=== PATIENT | male | born 1950 | race Caucasian/White ===

== ENCOUNTER 2016-10-08 18:16 | Inpatient (IN) ==
--- NOTE | 2016-10-08 19:42 | Emergency Department Note ---
Disposition Clinical Impression: Deep vein thrombosis of lower extremity Disposition: Admitted As Inpatient Condition: Fair General Adult HPI - General Chief complaint: ED Extremity Problem,Nontraumatic Stated complaint: Needs Ultrasound on ankle Time Seen by Provider: 10/08/16 19:39 Source: patient, family Limitations: no limitations - History of Present Illness Pain Scale: 2 - Related Data Home Medications Medication Instructions Recorded Confirmed Azathioprine [Imuran] 50 mg PO DAILY 08/13/15 10/08/16 Lansoprazole [Prevacid] 30 mg PO BID 08/13/15 10/08/16 predniSONE [PredniSONE] 10 mg PO DAILY 08/13/15 10/08/16 Doxycycline Hyclate 100 mg PO BID 11/24/15 10/08/16 Fludrocortisone Acetate [Florinef] 0.1 mg PO MOWEFR 11/24/15 10/08/16 Alfuzosin HCl [Uroxatral] 10 mg PO DAILY 05/29/16 10/08/16 Oxycodone HCl [Oxycodone HCl] 10 mg PO Q8H PRN 10/08/16 10/08/16 clonazePAM [Klonopin] 1 mg PO HS 10/08/16 10/08/16 Doxycycline 100 mg PO BID 10/09/16 10/09/16 Allergies Allergy/AdvReac Type Severity Reaction Status Date / Time NSAIDS (Non-Steroidal AdvReac KIDNEY Verified 10/08/16 18:39 Anti-Inflamma DISEASE Past Medical History - Past Medical History Medical history: Reports: arthritis, cancer, GERD, hepatitis, renal disease, other Surgical history: Reports: hip replacement, orthopedic, other, other Psychiatric history: Reports: no psych history - Social History Smoking Status: Never smoker Smokeless Tobacco Status: No Alcohol use: Reports: none Drug use: Reports: none Physical Exam - General Limitations: no limitations General appearance: alert, in no apparent distress Course Vital Signs Temperature 97.9 F 10/08/16 18:35 Pulse Rate 70 10/08/16 18:35 Respiratory Rate 18 10/08/16 18:35 Blood Pressure 105/58 10/08/16 18:35 O2 Sat by Pulse Oximetry 91 10/08/16 18:35 Temperature 97.5 F L 10/09/16 05:04 Pulse Rate 81 10/09/16 05:04 Respiratory Rate 18 10/09/16 05:04 Blood Pressure 133/77 10/09/16 05:04 O2 Sat by Pulse Oximetry 95 10/09/16 05:04 Oxygen Delivery Oxygen Delivery Room Air Medical Decision Making - Lab Data Result diagrams: 10/08/16 21:23 10/08/16 21:23 Lab Results 10/08/16 10/08/16 10/08/16 Range/Units 21:23 21:23 21:23 WBC 4.2 L (4.3-11.1) K/mcL RBC 2.91 L (4.19-5.50) M/mcL Hgb 9.9 L (12.9-16.9) g/dL Hct 31.1 L (37.5-50.1) % MCV 106.9 H (83.0-100.0) fL MCH 34.0 H (28.0-33.3) pg MCHC 31.8 (31.6-35.5) g/dL RDW 13.8 (11.5-14.5) % Plt Count 77 L (140-400) K/mcL MPV 11.2 (9.4-12.4) fL Immature Gran % 1.2 (0-4) % Seg Neutrophils % 88.0 % Lymphocytes % 4.0 % Monocytes % 6.6 % Eosinophils % 0.2 % Basophils % 0.0 % Neutrophils # 3.7 (1.6-8.9) K/mcL Lymphocytes # 0.2 L (0.6-4.6) K/mcL Monocytes # 0.3 (0.0-1.3) K/mcL Eosinophils # 0.0 (0.0-0.6) K/mcL Basophils # 0.0 (0.0-0.2) K/mcL Platelet Estimate Decreased L (Normal) Immature Plt Fraction 3.2 (1.1-6.1) % PT 11.3 (9.4-12.1) Seconds INR 1.0 APTT 28.3 (26.0-36.0) Seconds Sodium 140 (136-145) mEq/L Potassium 4.9 H (3.5-4.5) mEq/L Chloride 111 H (98-109) mEq/L Carbon Dioxide 19 (19-29) mEq/L BUN 79 H (8-26) mg/dL Creatinine 5.08 H (0.72-1.25) mg/dL Est GFR ( Amer) 14 L (> 60) Est GFR (Non-Af Amer) 12 L (> 60) BUN/Creatinine Ratio 16 (6-26) Glucose 131 H (70-99) mg/dL Calculated Osmolality 315 H (280-300) Calcium 10.2 (8.6-10.8) mg/dL Total Bilirubin 0.5 (0.2-1.2) mg/dL AST 19 (5-34) Units/L ALT 9 (0-55) Units/L Alkaline Phosphatase 124 (38-126) Units/L Serum Total Protein 5.7 L (6.0-8.3) g/dL Albumin 2.9 L (3.5-5.0) g/dL Globulin 2.8 (2.4-3.5) g/dL Albumin/Globulin Ratio 1.0 L (1.1-2.2) Critical Care Time Critical Care Time: Yes Total Critical Care Time: 30 Attestation: She presented with left lower extremity pain and swelling. Diagnosed with a DVT. IV heparin started per my discussion with the admitting hospitalist Attestation Statement - Attestation Attestation: I examined this patient and my medical decision-making was reviewed with the CHEMISTRY ASSOCIATE/PA/Advanced Practice Nurse/Resident Physician. I agree with the documented findings, disposition and treatment plan as described except to the extent set forth below. [id number] time provided The patient is concerned about atraumatic left ankle swelling. No history of DVT. No evidence of septic arthritis on exam. I suspect the swelling to be secondary to his gait as he has a leg length discrepancy and has a left under his right shoe. DVT study +. Admit due to baseline kidney dysfunction 21:20: Case discussed with Dr. Baker covering for Dr. John (nephro) who is made aware of the patient's admission
--- NOTE | 2016-10-08 20:27 | Emergency Department Note ---
Disposition Clinical Impression: Deep vein thrombosis of lower extremity Qualifiers: Affected thrombotic vein of extremity: iliac Laterality: left Chronicity: acute Qualified Code(s): I82.422 - Acute embolism and thrombosis of left iliac vein Disposition: Admitted As Inpatient Condition: Fair Referrals: NO,PCP [Non-Partnered Physician] - Forms: ED Satisfaction Letter Time of Disposition: 22:10 Extremity Problem HPI - General Chief complaint: ED Extremity Problem,Nontraumatic Stated complaint: Needs Ultrasound on ankle Time Seen by Provider: 10/08/16 19:39 Source: patient, family Limitations: no limitations Nursing Notes Reviewed: Yes Vital Signs Reviewed: Yes - History of Present Illness HPI Narrative: Patient is a 65-year-old male who presents to [facility] ED with a chief complaint of left lower extremity swelling. States he was seen in the office today by Dr. Gilmore who was concerned for a DVT. Patient states the swelling has been ongoing over the last 6 weeks. Patient denies any shortness of breath or chest pain. He has had some issues with nausea and decreased appetite which is why he is seeing a retail wireless sales consultant. Denies any recent fevers or chills. Patient has had prior hip surgery as well as has a foot lift on his right foot. Pt Subjective Complaint: extremity swelling Onset (ago): week(s) Consistency: constant Injury Location: left, lower extremity Pain Scale: 7 Radiation: none Improves with: nothing Worsens with: walking Associated symptoms: Reports: change in appearance, swelling. Denies: chest pain, shortness of breath, fever - Related Data Home Medications Medication Instructions Recorded Confirmed Azathioprine [Imuran] 50 mg PO DAILY 08/13/15 07/20/16 Lansoprazole [Prevacid] 30 mg PO QAM 08/13/15 07/20/16 predniSONE [PredniSONE] 10 mg PO HS 08/13/15 07/20/16 Doxycycline Hyclate 100 mg PO BID 11/24/15 07/20/16 Fludrocortisone Acetate [Florinef] 0.1 mg PO 3XW MDD mon,wed,fri 11/24/15 Alfuzosin HCl [Uroxatral] 10 mg PO DAILY 05/29/16 07/20/16 Oxycodone HCl [Oxycodone HCl] 10 mg PO Q8H PRN 06/19/17 06/19/17 clonazePAM [Klonopin] 1 mg PO HS 10/08/16 10/08/16 Allergies Allergy/AdvReac Type Severity Reaction Status Date / Time NSAIDS (Non-Steroidal AdvReac KIDNEY Verified 10/08/16 18:39 Anti-Inflamma DISEASE All systems ED: reviewed and negative except as stated. Past Medical History - Past Medical History Attestation: Yes The following information was validated with the patient. Source: patient Medical history: Reports: arthritis, cancer, GERD, hepatitis, renal disease, other Surgical history: Reports: hip replacement, orthopedic, other, other Psychiatric history: Reports: no psych history - Social History Smoking Status: Never smoker Smokeless Tobacco Status: No Alcohol use: Reports: none Drug use: Reports: none Physical Exam - General Limitations: no limitations General appearance: alert, in no apparent distress - Head Head exam: atraumatic, normocephalic, normal inspection - Eye Eye exam: Present: normal appearance, EOMI - ENT ENT exam: normal exam, normal oropharynx, mucous membranes moist - Chest Chest inspection: Present: normal inspection, symmetric chest wall rise - Cardiovascular Cardiovascular exam: Present: regular rate, normal rhythm, normal heart sounds - Abdominal Exam Abdominal exam: Present: soft, Non-Tender. Absent: tenderness, distention, guarding, rebound, rigidity - Extremities Exam Extremities exam: Present: pedal edema - Expanded Lower Extremity Exam Lower leg exam: Present: swelling Ankle exam: Present: swelling Foot/toe exam: Present: swelling Neurovascular/Tendon exam: Present: normal capillary refill - Back Exam Back exam: Present: normal inspection, full ROM. Absent: tenderness - Neurological Exam Neurological exam: Present: alert - Psychiatric Psychiatric exam: Present: normal affect, normal mood - Skin Skin exam: Present: warm, dry, intact, normal color Course Course Narrative: Patient seen and examined. Left lower extremity swelling worse over the last 6 weeks. Sent in for rule out DVT. No signs of cellulitis. Patient has minimal pain. Venous Doppler ultrasound ordered. - Reevaluation(s) Reevaluation #1: Patient's Doppler of the left lower external doppler positive for large DVT extending from the iliac all the way down. Due to patient's poor renal function , Dr. Walker spoke with Dr. Baker to let them know that patient was coming into the hospital. Also spoke to Dr. Estrada who has accepted patient for admission. He would like a heparin drip started. This has been ordered. Time: 22:09 Vital Signs Temperature 97.9 F 10/08/16 18:35 Pulse Rate 70 10/08/16 18:35 Respiratory Rate 18 10/08/16 18:35 Blood Pressure 105/58 10/08/16 18:35 O2 Sat by Pulse Oximetry 91 10/08/16 18:35 Temperature 97.9 F 10/08/16 18:35 Pulse Rate 106 10/08/16 20:09 Respiratory Rate 18 10/08/16 20:09 Blood Pressure 124/81 10/08/16 20:09 O2 Sat by Pulse Oximetry 100 10/08/16 20:09 Oxygen Delivery Oxygen Delivery Room Air Extremity Problem, Nontraumati - Medical Records Medical records reviewed: Yes I reviewed the patient's medical records. - Lab Data Lab results reviewed: Yes I reviewed the patient's lab results. Result diagrams: 10/08/16 21:23 10/08/16 21:23 Lab Results 10/08/16 10/08/16 10/08/16 Range/Units 21:23 21:23 21:23 WBC 4.2 L (4.3-11.1) K/mcL RBC 2.91 L (4.19-5.50) M/mcL Hgb 9.9 L (12.9-16.9) g/dL Hct 31.1 L (37.5-50.1) % MCV 106.9 H (83.0-100.0) fL MCH 34.0 H (28.0-33.3) pg MCHC 31.8 (31.6-35.5) g/dL RDW 13.8 (11.5-14.5) % Plt Count 77 L (140-400) K/mcL MPV 11.2 (9.4-12.4) fL Immature Gran % 1.2 (0-4) % Seg Neutrophils % 88.0 % Lymphocytes % 4.0 % Monocytes % 6.6 % Eosinophils % 0.2 % Basophils % 0.0 % Neutrophils # 3.7 (1.6-8.9) K/mcL Lymphocytes # 0.2 L (0.6-4.6) K/mcL Monocytes # 0.3 (0.0-1.3) K/mcL Eosinophils # 0.0 (0.0-0.6) K/mcL Basophils # 0.0 (0.0-0.2) K/mcL Platelet Estimate Decreased L (Normal) Immature Plt Fraction 3.2 (1.1-6.1) % PT 11.3 (9.4-12.1) Seconds INR 1.0 APTT 28.3 (26.0-36.0) Seconds Sodium 140 (136-145) mEq/L Potassium 4.9 H (3.5-4.5) mEq/L Chloride 111 H (98-109) mEq/L Carbon Dioxide 19 (19-29) mEq/L BUN 79 H (8-26) mg/dL Creatinine 5.08 H (0.72-1.25) mg/dL Est GFR ( Amer) 14 L (> 60) Est GFR (Non-Af Amer) 12 L (> 60) BUN/Creatinine Ratio 16 (6-26) Glucose 131 H (70-99) mg/dL Calculated Osmolality 315 H (280-300) Calcium 10.2 (8.6-10.8) mg/dL Total Bilirubin 0.5 (0.2-1.2) mg/dL AST 19 (5-34) Units/L ALT 9 (0-55) Units/L Alkaline Phosphatase 124 (38-126) Units/L Serum Total Protein 5.7 L (6.0-8.3) g/dL Albumin 2.9 L (3.5-5.0) g/dL Globulin 2.8 (2.4-3.5) g/dL Albumin/Globulin Ratio 1.0 L (1.1-2.2) - Radiology Data Radiology results reviewed: Yes I reviewed the patient's radiology results.
[2016-10-08 21:31] LABS: Eosinophils % 0.2 %; Hematocrit 31.1 % (37.5-50.1)
[2016-10-08 21:33] LABS: Hemoglobin 9.9 g/dL (12.9-16.9); Immature Granulocytes % 1.2 % (0-4); Immature Platelets 3.2 % (1.1-6.1); Lymphocytes # 0.2 K/mcL (0.6-4.6); Mean Corpuscular HGB Conc 31.8 g/dL (31.6-35.5); Mean Corpuscular Volume 106.9 fL (83.0-100.0); Mean Platelet Volume 11.2 fL (9.4-12.4); Monocytes # 0.3 K/mcL (0.0-1.3); Monocytes % 6.6 %; Neutrophils # 3.7 K/mcL (1.6-8.9); Red Blood Count 2.91 M/mcL (4.19-5.50); Red Cell Distribution Width 13.8 % (11.5-14.5)
[2016-10-08 21:35] LABS: Platelet Count 77 K/mcL (140-400)
[2016-10-08 21:39] LABS: Prothrombin Time 11.3 Seconds (9.4-12.1)
[2016-10-08 21:41] LABS: Activated Partial Thrombo Time 28.3 Seconds (26.0-36.0)
[2016-10-08 21:44] LABS: Albumin 2.9 g/dL (3.5-5.0); Bilirubin,Total 0.5 mg/dL (0.2-1.2); Calcium 10.2 mg/dL (8.6-10.8); Globulin 2.8 g/dL (2.4-3.5); Potassium 4.9 mEq/L (3.5-4.5); Total Protein 5.7 g/dL (6.0-8.3)
[2016-10-08] MEDS ORDERED: *HR* Heparin 5,000 UNIT/ML VIAL IVP PRN ×2 (21:55)
[2016-10-08] MEDS ORDERED: *HR* Heparin 5,000 UNIT/ML VIAL IVP ONE (21:55)
[2016-10-08 22:01] LABS: Platelet Estimate Decreased (Normal)
[2016-10-08] MEDS: Heparin 25,000 UNIT/500 ML D5W 25,000 UNIT/500 ML MLS IVC SCH (22:10)
[2016-10-09] MEDS: clonazePAM 1 MG TABLET PO SCH ×2 (00:50→20:47)
[2016-10-09] MEDS: *HR* OxyCODONE Immed Rel 5 MG TABLET PO PRN ×2 (00:51→17:31)
[2016-10-09] MEDS: Doxycycline 100 MG CAPSULE PO SCH ×3 (01:13→20:47)
[2016-10-09] MEDS ORDERED: Naloxone 0.4 MG/ML INJ IVP PRN (02:13)
--- NOTE | 2016-10-09 02:13 | Internal Med History&Physical ---
Date of Encounter: 10/09/16 Time of Encounter: 02:12 Assessment and Plan (1) Deep vein thrombosis of lower extremity Current visit: Yes Status: Acute Pt apparently been sedentary since he lost his earlier this year. Venous Doppler was Positive for DVT in Iliac Vein,CFV and SFV. He is started on heparin drip in the ER. Pt has chronic thrombocytopenia - will consult Hematology / oncology for advice on anticoagulation. Qualifiers: Affected thrombotic vein of extremity: iliac Laterality: left Chronicity : acute Qualified Code(s): I82.422 - Acute embolism and thrombosis of left iliac vein (2) CKD (chronic kidney disease) stage 4, GFR 15-29 ml/min Current visit: Yes Status: Chronic Monitor renal function. Avoid nephrotoxics (3) Anemia Current visit: Yes Status: Chronic Chronic macrocytic anemia. Labs in August 2016 showed low folate and normal TSH and vitamin B12. will start on folic acid supplements. Monitor H&H Qualifiers: Anemia type: other cause Other causes of anemia: chronic disease, kidney Qualified Code(s): N18.9 - Chronic kidney disease, unspecified (4) Thrombocytopenia Current visit: Yes Status: Chronic Likely secondary to Hepatitis C. Monitor platelet count (5) Kidney transplant recipient Current visit: Yes Status: Chronic Continue home medications Internal Medicine - H&P: HPI Chief complaint: DVT Admitted From: Emergency Dept Plans for Post Hospital Care: Home History of present illness: Mr. Ford is a 65 year old male Past medical history significant for s/p kidney transplant, CKD, BPH, hepatitis C, anemia, Barretts esophagus, s/p Right total Hip replacement / revision, s/p left ankle surgery. He was apparently seen in Dr Shaffer office for dysphagia. He reported left ankle edema and Dr Gilmore was concerned about DVT, subsequent venous Doppler showed Positive DVT in Iliac Vein,CFV and SFV in left LE. He was started on heparin infusion in the emergency department. He is admitted to the hospitalist service for further workup and management. Pt denies significant pain in the left lower extremity. He reports that the swelling has been ongoing over the last 6 weeks. He denies significant chest pain, or change in shortness of breath (He has chronic shortness of breath). Denies hemoptysis, fever, chills, abdominal pain, dysuria, hematuria or bowel problems. He reports that he picks the skin, which bleeds and causing bruising of the skin. Past Med Surg Social Fam HX - Past Medical History Medical history: arthritis, cancer, GERD, hepatitis, renal disease Psychiatric history: no psych history - Past Surgical History Surgical History: hip replacement, orthopedic, other, other - Social History Smoking Status: Never smoker Smokeless Tobacco Status: No Alcohol use: none Drug use: none - Family History Father Living Status: Mother Living Status: Internal Medicine - H&P: Meds Azathioprine [Imuran] 50 mg PO DAILY 08/13/15 [History] Lansoprazole [Prevacid] 30 mg PO BID 08/13/15 [History] predniSONE [PredniSONE] 10 mg PO DAILY 08/13/15 [History] Doxycycline Hyclate 100 mg PO BID 11/24/15 [History] Fludrocortisone Acetate [Florinef] 0.1 mg PO MOWEFR 11/24/15 [History] Alfuzosin HCl [Uroxatral] 10 mg PO DAILY 05/29/16 [History] Oxycodone HCl [Oxycodone HCl] 10 mg PO Q8H PRN 10/08/16 [History] clonazePAM [Klonopin] 1 mg PO HS 10/08/16 [History] Doxycycline 100 mg PO BID 10/09/16 [History] Allergies NSAIDS (Non-Steroidal Anti-Inflamma Adverse Reaction (Verified 10/08/16 18:39) KIDNEY DISEASE All Systems PM: A 10-system review of systems was performed and is negative for pertinent findings except as documented above in the HPI. - Constitutional Vitals: Temp Pulse Resp BP Pulse Ox 97.6 F 104 18 117/85 100 10/08/16 23:53 10/08/16 23:53 10/08/16 23:53 10/08/16 23:53 10/09/16 01:42 Exam: General: Not in acute distress at the time of my evaluation HEENT: Oral mucosa is moist. No conjunctival palor or scleral icterus Neck: No obvious neck swellings Lungs: Clear to auscultation Cardiac: Regular rate and rhythm. No significant murmurs Abdomen: Soft, non tender. Bowel sounds present Genitourinary: No danielson catheter Neurological: Alert and oriented. No gross localizing deficits Psych: Not aggressive or agitated Extremities: Right lower extremity is shorted than the left. There is chronic swelling at the right hip. There is swelling of the left leg / ankle Skin: Bruising over the upper extremities Internal Med - H&P Results - Labs CBC & Chem 7: 10/08/16 21:23 10/08/16 21:23
[2016-10-09] MEDS ORDERED: Doxycycline 100 MG CAPSULE PO SCH (09:00)
[2016-10-09] MEDS: Renal Vitamin 1 MG CAPSULE PO SCH (09:13)
[2016-10-09] MEDS: NON-FORMULARY MEDICATION 1 EACH EACH PO SCH (09:13)
[2016-10-09] MEDS: predniSONE 10 MG TABLET PO SCH (09:13)
--- NOTE | 2016-10-09 10:22 | Internal Med Progress Note ---
<Donnie Sweeney - Last Filed: 10/09/16 16:31> Date of Encounter: 10/09/16 - Constitutional Vitals: Temp Pulse Resp BP Pulse Ox 97.9 F 82 18 138/78 94 10/09/16 15:30 10/09/16 15:30 10/09/16 15:30 10/09/16 15:30 10/09/16 15:30 Internal Medicine: Result - Labs CBC & Chem 7: 10/08/16 21:23 10/08/16 21:23 - ABG Interpretation ABG results: PT/INR, D-dimer PT 11.3 Seconds (9.4-12.1) 10/08/16 21:23 Consult Discharge Plan - Plan Referrals: Vijay Daniel MD [Primary Care Provider] - - Attending Attestation I examined this patient and my medical decision-making was reviewed with the SEWING MACHINE ADJUSTER/PA/Advanced Practice Nurse/Resident Physician. I agree with the documented findings, disposition and treatment plan as described except to the extent set forth below. Oncology input appreciated. will get nephrology on board. <Gilberto Albarado - Last Filed: 10/09/16 16:58> Date of Encounter: 10/09/16 Time of Encounter: 10:15 - Assessment and plan (1) Deep vein thrombosis of left lower limb Current Visit: Yes Status: Acute Assessment and plan: Extensive left lower extremity deep vein thrombosis identified with venous ultrasound. Patient denies traumatic injury. Patient has been sitting for long periods of time after the loss of his . He denies any shortness of breath, chest pain or any other concerning symptoms. Other than his skin lesions he denies any known history of cancer. - Patient denies any history of deep vein thrombosis or pulmonary embolism. - Previous left hip replacement and left septic hip and left ankle surgery 3 years ago - Patient is currently on heparin drip for antiplatelet therapy. Plan: - Patient will require at least 3 months of adequate anticoagulation but given hisstage V CKD his oral anticoagulation is limited. His current options include subcutaneous heparin injections at therapeutic level or oral Coumadin. - Hematology consulted Qualifiers: Qualified Code(s): I82.402 - Acute embolism and thrombosis of unspecified deep veins of left lower extremity (2) Macrocytic anemia Current Visit: Yes Status: Acute Assessment and plan: Patient has a chronic history of macrocytic anemia with previous history of renal transplant and in the setting of stage V kidney failure. He follows up with Dr. John with nephrology. He has previously been seen by hematology/ oncology for his macrocytic anemia. - Currently stable (3) Thrombocytopenia Current Visit: Yes Status: Chronic Assessment and plan: Chronic history of thrombocytopenia, review of previous platelet counts demonstrate a low of 28, currently 77 which is slightly normal than his baseline from 2016. - Hematology has been consulted. (4) Chronic kidney disease, stage V Current Visit: Yes Status: Acute Assessment and plan: Chronic kidney disease with a GFR of 12 and creatinine of 5.08. He follows up with Dr. John. - Current creatinine is stable. Plan: -Renally dose antibiotics and avoid nephrotoxic medications including NSAIDs. - Monitor renal function daily (5) Kidney transplant recipient Current Visit: Yes Status: Chronic Assessment and plan: Kidney transplant 1979, slow decrease in renal function. - Monitored by nephrology (6) DM (diabetes mellitus) Current Visit: No Status: Acute Assessment and plan: History of type 2 diabetes currently diet controlled. We will add low-dose sliding scale insulin during inpatient stay. - Monitor glucoses daily Qualifiers: Diabetes mellitus type: type 2 Diabetes mellitus complication status: with kidney complications Diabetes mellitus complication detail: with chronic kidney disease Chronic kidney disease stage: stage 4 (severe) Qualified Code (s): E11.22 - Type 2 diabetes mellitus with diabetic chronic kidney disease; N18.4 - Chronic kidney disease, stage 4 (severe); Z79.4 - superintendent container terminal (current) use of insulin (7) DVT prophylaxis Current Visit: Yes Status: Acute Assessment and plan: Patient currently on heparin drip with transition to warfarin with current DVT - Subjective Interval history: Mr. Ford very pleasant 65-year-old male has been seen and evaluated patient bedside this morning. He is without any pain, discomfort and is resting well and is alert and oriented 3. Upon discussion he states that his symptoms of left lower extremity swelling started roughly 6 weeks ago and that he has not had any traumas or known injuries or recent surgeries in the last several months. He last had a left hip surgery and left ankle surgery roughly 3 years ago. Though he does mention he has been sitting a lot more since his in May with low motivation. He denies any history of blood clots including DVTs and pulmonary embolisms. He does have a history of skin cancer since starting his immunosuppressants for his kidney transplants in 1978. He is unsure why he lost his kidney originally but thinks is due to his high blood pressure history. He follows up with Dr. John with nephrology with his worsening renal function and said that his GFR is roughly 12 for the past 2 years. Prior to his current admission he was seen Dr. Gilmore for evaluation prior to EGD for difficulty with swallowing and history of Ma's esophagus. Currently he is feeling well at his normal state of health and asked about discharge. - Constitutional Vitals: Temp Pulse Resp BP Pulse Ox 98.1 F 80 18 126/71 99 10/09/16 06:56 10/09/16 06:56 10/09/16 06:56 10/09/16 06:56 10/09/16 06:56 Exam: General: Patient alert, awake, oriented 3, interactive, in no acute distress HEENT: Normocephalic, atraumatic, pupils equal reactive to light, nasal cavity patent and open septum median position, oral mucosa moist, uvula midline, neck supple trachea midline no palpable lymphadenopathy, no thyromegaly. Chest: Symmetric bilateral correlating with respiratory effort, effort nonlabored. Cardiac: Regular rate and rhythm, positive S1, S2, no bruits appreciated bilateral carotids, Radial pulses 2+ bilateral, posterior tibial and dorsal pedal pulses 2+ bilateral. Respiratory: Clear to auscultation all lung saucedo Abdomen: Soft, nontender, positive bowel sounds, no palpable masses appreciated on examination Extremities: Left lower extremity demonstrates edema from the foot up to mid thigh. Patient is moving all 4 extremities spontaneously. No signs of erythema. Neurologic: No focal deficits appreciated on examination. Face symmetric, muscle strength symmetric bilateral upper and lower extremities. Internal Medicine: Result - Labs CBC & Chem 7: 10/08/16 21:23 10/08/16 21:23 - ABG Interpretation ABG results: PT/INR, D-dimer PT 11.3 Seconds (9.4-12.1) 10/08/16 21:23
--- NOTE | 2016-10-09 12:17 | Venous Imaging Report ---
LE Venous Duplex Patient Name:Gilberto Ford Order Number:[id number] Procedure Date:10/08/2016 Date:1950ge:65 yrs Gender:Male Location:[facility] ED Room #: ED2 Masseur/Masseuse:Mary Lou Mackenzie Referring MD:Lalito Walker MD renewals manager:Vijay Daniel MD Reading MD:Piyush Hyde MD Primary Indications:DVT evaluation Secondary Indications: Impressions: Acute deep venous thrombosis is present from the left distal iliac through superficial femoral vein. Acute superficial thrombosis is present in the left greater saphenous vein. Normal contralateral common femoral vein. Recommendations: Test completed on 10/08/2016 at 9:03:00 pm. Critical findings reported to Dr. Walker-ED- in person at 9:05:00 pm on 10/08/2016 by Mary Lou Mackenzie. Findings Venous Duplex Results: Left: There is an occlusive thrombus seen in the left distal iliac. There is an occlusive thrombus seen in the left common femoral. There is an occlusive thrombus seen in the left superficial femoral. There is an occlusive thrombus seen in the left great saphenous above knee. Prior Study: No prior study available for comparison. Lower Extremity Venous Duplex Side Vein Compress Spontaneous Flow Augment Diameter (cm) Depth (cm) Left Distal Iliac None no Absent no Left Common Femoral None no Absent no Left Superficial Femoral None no Absent no Left Popliteal Normal Yes Phasic Yes Left Posterior Tibial Normal Yes Phasic Yes Left Peroneal Normal Yes Phasic Yes Left Saphenofemoral Junction Normal Yes Phasic Yes Left Great Saphenous [place] None no Absent no Left Great Saphenous BK Normal Yes Phasic Yes Left Lesser Saphenous Normal Yes Phasic Yes Right Common Femoral Normal Yes Phasic Yes Updated by Piyush Hyde MD on 10/09/2016 12:12:05 PM electronically signed on 10/09/2016 12:12:20 PM with status of Final
--- NOTE | 2016-10-09 12:33 | Oncology Inp Consult Note ---
Date of Encounter: 10/09/16 Time of Encounter: 11:45 Assessment and Plan (1) Deep vein thrombosis of left lower limb Status: Acute Assessment and plan: Mr. Jonas has an acute left lower extremity deep vein thrombosis. He has been placed on heparin with a clinical response. Regarding long-term anticoagulation , his only valid option is Coumadin. I will start him on Coumadin 3 mg once daily given his body habitus and medical comorbidities. INR goal will be 2-3. Unfortunately ODACs are not an option given his GFR being less than 15. We will plan for a minimum of 3 months of therapy, but preferably 6 months. Please set him up in the outpatient Coumadin clinic to aid in management I will have him follow my clinic as well 2 weeks after discharge. Thank you for this consultation. Please call my cell [phone] for concerns or questions Qualifiers: Qualified Code(s): I82.402 - Acute embolism and thrombosis of unspecified deep veins of left lower extremity - Data of Consult Requesting Physician: Donnie Sweeney MD Primary Care Provider: Vijay Daniel MD - Consult Narrative Reason for consult: Let leg DVT in setting of thrombocytopenia History of present illness: Mr. Ford is a 65 year old male with multiple medical problems who presents with subacute worsening of left leg pain and ankle swelling. The past 6 weeks or so, he has had some leg pain and swelling which worse over the past 1 week. He brought this to the attention was orthopedists who thought it was arthritic in nature and offered a steroid injection. He was seen by another physician who recommended diuresis and a low sodium diet. He then met with his billboard erector who is helping him with a has hepatitis C recommended postoperative ultrasound which revealed a left leg deep vein thrombosis affecting his left iliac vein, common femoral vein, superficial femoral vein and left great saphenous vein. He was admitted to the hospital placed on a heparin drip. His left leg mobility, swelling and pain have improved. Patient has no personal history of thrombosis. He denies any known family history of thrombosis as well. He does have hepatitis C and recently completed a course of therapy that sounded consistent with Svetlana. This was initiated in April and completed the end of June. He does have end-stage renal disease. He is status post transplant remotely and his GFR calculates to 12 by labs drawn today. Past Med Surg Social Fam HX - Past Medical History Medical history: arthritis, cancer, GERD, hepatitis, renal disease Psychiatric history: no psych history - Past Surgical History Surgical History: hip replacement, orthopedic, other, other - Social History Smoking Status: Never smoker Smokeless Tobacco Status: No Alcohol use: none Drug use: none - Family History Father Living Status: Mother Living Status: Medications and Allergies Azathioprine [Imuran] 50 mg PO DAILY 08/13/15 [History] Lansoprazole [Prevacid] 30 mg PO BID 08/13/15 [History] predniSONE [PredniSONE] 10 mg PO DAILY 08/13/15 [History] Doxycycline Hyclate 100 mg PO BID 11/24/15 [History] Fludrocortisone Acetate [Florinef] 0.1 mg PO MOWEFR 11/24/15 [History] Alfuzosin HCl [Uroxatral] 10 mg PO DAILY 05/29/16 [History] Oxycodone HCl [Oxycodone HCl] 10 mg PO Q8H PRN 10/08/16 [History] clonazePAM [Klonopin] 1 mg PO HS 10/08/16 [History] Doxycycline 100 mg PO BID 10/09/16 [History] Allergies NSAIDS (Non-Steroidal Anti-Inflamma Adverse Reaction (Verified 10/08/16 18:39) KIDNEY DISEASE All systems: reviewed and no additional remarkable complaints except as stated Constitutional: Present: fatigue, lethargy, weight loss Musculoskeletal: Present: arthralgias, joint swelling Psychiatric: Present: depression Oncology - Exam - Constitutional Vitals: Temp Pulse Resp BP Pulse Ox 98.8 F 89 18 159/87 98 10/09/16 11:24 10/09/16 11:24 10/09/16 11:24 10/09/16 11:24 10/09/16 11:24 General appearance: no acute distress, thin - Head Head exam: Present: atraumatic, normal inspection, normocephalic - Eye Eye exam: Present: conjuntiva pink, sclera anicteric - ENT ENT exam: Present: mucous membranes moist - Neck Neck exam: Present: full ROM, normal inspection - Respiratory Respiratory exam: Present: CTAB - Cardiovascular Cardiovascular exam: Present: RRR - GI/Abdominal GI/Abdominal exam: Present: normal bowel sounds, soft - Extremities Exam Extremities exam: Present: joint swelling, pedal edema Oncology - Results - Labs Labs: Laboratory Results - last 24 hr 10/08/16 10/08/16 10/08/16 21:23 21:23 21:23 WBC 4.2 L RBC 2.91 L Hgb 9.9 L Hct 31.1 L MCV 106.9 H MCH 34.0 H MCHC 31.8 RDW 13.8 Plt Count 77 L MPV 11.2 Immature Gran % 1.2 Seg Neutrophils % 88.0 Lymphocytes % 4.0 Monocytes % 6.6 Eosinophils % 0.2 Basophils % 0.0 Neutrophils # 3.7 Lymphocytes # 0.2 L Monocytes # 0.3 Eosinophils # 0.0 Basophils # 0.0 Platelet Estimate Decreased L Immature Plt Fraction 3.2 PT 11.3 INR 1.0 APTT 28.3 Sodium 140 Potassium 4.9 H Chloride 111 H Carbon Dioxide 19 BUN 79 H Creatinine 5.08 H Est GFR ( Amer) 14 L Est GFR (Non-Af Amer) 12 L BUN/Creatinine Ratio 16 Glucose 131 H Calculated Osmolality 315 H Calcium 10.2 Total Bilirubin 0.5 AST 19 ALT 9 Alkaline Phosphatase 124 Serum Total Protein 5.7 L Albumin 2.9 L Globulin 2.8 Albumin/Globulin Ratio 1.0 L 10/09/16 03:39 WBC RBC Hgb Hct MCV MCH MCHC RDW Plt Count MPV Immature Gran % Seg Neutrophils % Lymphocytes % Monocytes % Eosinophils % Basophils % Neutrophils # Lymphocytes # Monocytes # Eosinophils # Basophils # Platelet Estimate Immature Plt Fraction PT INR APTT 93.6 H D Sodium Potassium Chloride Carbon Dioxide BUN Creatinine Est GFR ( Amer) Est GFR (Non-Af Amer) BUN/Creatinine Ratio Glucose Calculated Osmolality Calcium Total Bilirubin AST ALT Alkaline Phosphatase Serum Total Protein Albumin Globulin Albumin/Globulin Ratio Consult Discharge Plan - Plan Referrals: Vijay Daniel MD [Primary Care Provider] -
[2016-10-09] MEDS ORDERED: *HR* Dextrose 50 % in Water (Syg) 50 ML SYRINGE IVP PRN (16:54)
[2016-10-09] MEDS ORDERED: Dextrose Gel 15 GM PO PRN ×2 (16:54)
[2016-10-09] MEDS ORDERED: D5% in Water 1,000 ML IVC PRN (16:54)
[2016-10-09] MEDS: Insulin LISPRO 300 UNITS/3 ML VIAL SQ SCH ×2 (17:28→20:48)
[2016-10-09] MEDS ORDERED: *HR* Warfarin 3 MG TABLET PO SCH (18:00)
[2016-10-10] MEDS: *HR* OxyCODONE Immed Rel 5 MG TABLET PO PRN ×3 (02:24→22:26)
[2016-10-10] MEDS: Heparin 25,000 UNIT/500 ML D5W 25,000 UNIT/500 ML MLS IVC SCH ×2 (06:15→22:00)
--- NOTE | 2016-10-10 07:20 | Oncology Inp Progress Note ---
Date of Encounter: 10/10/16 Time of Encounter: 07:15 (1) Deep vein thrombosis of left lower limb Current Visit: Yes Status: Acute Assessment and plan: Mr. Jonas has an acute left lower extremity deep vein thrombosis. He has been placed on heparin with a clinical response. Coumading initiated 10/09. INR goal will be 2-3. INR ordered for tomorrow. Unfortunately ODACs are not an option given his GFR being less than 15. We will plan for a minimum of 3 months of therapy, but preferably [address] imaging of C/A/P without significant abnormality. No indication to pursue further cancer workup outside of age appropriate screening per recent publication. Please set him up in the outpatient Coumadin clinic to aid in management I will have him follow my clinic as well 2 weeks after discharge. Thank you for this consultation. Please call my cell [phone] for concerns or questions Qualifiers: Qualified Code(s): I82.402 - Acute embolism and thrombosis of unspecified deep veins of left lower extremity Oncology: Subj Interval history: No acute events overnight. Received coumadin 3 mg last night. Feels hungry and upset over lack of food options. Would like to eat more. Informed patient he will likely be here through early weekend. He was disappointed by this. Left leg swelling has improved, however. - Constitutional Vitals: Vital Signs Temp Pulse Resp BP Pulse Ox 10/10/16 02:49 98.2 F 77 19 132/67 100 10/09/16 23:40 100 10/09/16 23:01 98.2 F 81 18 138/85 100 10/09/16 19:27 98.5 F 77 16 118/69 100 10/09/16 15:30 97.9 F 82 18 138/78 94 10/09/16 14:51 89 18 159/87 98 Intake and Output 10/09/16 10/10/16 10/10/16 16:59 00:59 08:59 Intake Total 1740 / 1740 950 / 950 Output Total 200 / 200 250 / 250 Balance 1540 / 1540 700 / 700 Intake: IV Fluids 250 / 250 Heparin 25,000 UNIT/500 250 / 250 ML D5W 25,000 unit In 500 ml @ 14 UNIT/KG/HR 16. 003 mls/hr IVC .Q24H NABIL Rx#:[id number] Oral 1740 / 1740 700 / 700 Output: Urine 200 / 200 250 / 250 Other: Meal Dinner Percent of Meal Consumed 70% Weight 55.1 kg Blood Glucose* 134 Patient Weight 10/11/16 00:59 Weight 55.1 kg - Head Head exam: Present: atraumatic, normal inspection, normocephalic - Eye Eye exam: Present: conjuntiva pink, sclera anicteric - ENT ENT exam: Present: mucous membranes moist, normal oropharynx - Neck Neck exam: Present: full ROM, normal inspection - Respiratory Respiratory exam: Present: CTAB - Cardiovascular Cardiovascular exam: Present: RRR - GI/Abdominal GI/Abdominal exam: Present: normal bowel sounds, soft - Extremities Exam Extremities exam: Present: pedal edema, tenderness - Neurological Exam Neurological exam: Present: CN II-XII intact, oriented X3, no focal deficits Oncology: Obj Data - Labs CBC & Chem 7: 10/08/16 21:23 10/08/16 21:23 Labs: Laboratory Results - last 24 hr 10/09/16 19:35 POC Glucose 134 H - Impressions Impressions Abdomen/Pelvis CT 10/09/16 16:30 IMPRESSION: Stable noncontrast study of the abdomen and pelvis. D/ / Chayo Hahn Cha, MD / Chayo Hahn Cha, MD Interpreting Provider: Chayo Hahn Cha, MD Chest CT 10/09/16 16:30 IMPRESSION: No acute or suspicious intrathoracic process. D/ / Chayo Hahn Cha, MD / Chayo Hahn Cha, MD Interpreting Provider: Chayo Hahn Cha, MD - Imaging and cardiology Chest x-ray Additional comments: Abdomen/Pelvis CT 10/09/16 16:30 IMPRESSION: Stable noncontrast study of the abdomen and pelvis. D/ / Chayo Hahn Cha, MD / Chayo Hahn Cha, MD Interpreting Provider: Chayo Hahn Cha, MD Chest CT 10/09/16 16:30 IMPRESSION: No acute or suspicious intrathoracic process. D/ / Chayo Hahn Cha, MD / Chayo Hahn Cha, MD Interpreting Provider: Chayo Hahn Cha, MD - ABG Interpretation ABG results: PT/INR, D-dimer PT 11.3 Seconds (9.4-12.1) 10/08/16 21:23 Consult Discharge Plan - Plan Referrals: Vijay Daniel MD [Primary Care Provider] -
[2016-10-10 07:27] LABS: Basophils % 0.2 %; Eosinophils % 1.7 %; Immature Granulocytes % 1.3 % (0-4); Mean Corpuscular Volume 105.2 fL (83.0-100.0); Monocytes % 11.9 %; Red Cell Distribution Width 13.9 % (11.5-14.5)
[2016-10-10 07:29] LABS: Eosinophils # 0.1 K/mcL (0.0-0.6); Hematocrit 24.1 % (37.5-50.1); Hemoglobin 7.8 g/dL (12.9-16.9); Immature Platelets 4.5 % (1.1-6.1); Lymphocytes # 0.4 K/mcL (0.6-4.6); Mean Corpuscular HGB Conc 32.4 g/dL (31.6-35.5); Mean Corpuscular Hemoglobin 34.1 pg (28.0-33.3); Mean Platelet Volume 11.1 fL (9.4-12.4); Monocytes # 0.6 K/mcL (0.0-1.3); Red Blood Count 2.29 M/mcL (4.19-5.50); Segmented Neutrophils % 75.9 %
[2016-10-10 08:20] LABS: Neutrophils # 3.6 K/mcL (1.6-8.9); Platelet Count 75 K/mcL (140-400)
--- NOTE | 2016-10-10 08:24 | Internal Med Progress Note ---
<Gilberto Albarado - Last Filed: 10/10/16 13:15> Date of Encounter: 10/10/16 Time of Encounter: 08:24 - Assessment and plan (1) Deep vein thrombosis of left lower limb Current Visit: Yes Status: Acute Assessment and plan: Extensive left lower extremity deep vein thrombosis identified with venous ultrasound. Patient denies traumatic injury. Patient has been sitting for long periods of time after the loss of his . He denies any shortness of breath, chest pain or any other concerning symptoms. Other than his skin lesions he denies any known history of cancer. - Patient denies any history of deep vein thrombosis or pulmonary embolism. - Previous left hip replacement and left septic hip and left ankle surgery 3 years ago - Patient is currently on heparin drip for antiplatelet therapy. - Seen by oncology/hematology and started on warfarin therapy. Plan: - Continue heparin drip until Coumadin level is therapeutic with a goal range of 2-3 with expected treatments 3-6 months. Patient will require follow-up with anticoagulation clinic - Hematology involved in patient's care and recommendations appreciated. Qualifiers: Qualified Code(s): I82.402 - Acute embolism and thrombosis of unspecified deep veins of left lower extremity (2) Macrocytic anemia Current Visit: Yes Status: Acute Assessment and plan: Patient has a chronic history of macrocytic anemia with previous history of renal transplant and in the setting of stage V kidney failure. He follows up with Dr. John with nephrology. He has previously been seen by hematology/ oncology for his macrocytic anemia. 10/10/2016: Hemoglobin 7.8 this morning down from 9.9 yesterday. Patient was started on heparin drip for extensive DVT. He denies any blood in his urine or stool. - Continue to monitor hemoglobin rechecked this afternoon. - Replace with PRBCs if hemoglobin falls below 7.0 - If there is a source of acute bleeding patient may require IVC filter. (3) Thrombocytopenia Current Visit: Yes Status: Chronic Assessment and plan: Chronic history of thrombocytopenia, review of previous platelet counts demonstrate a low of 28, currently 75 which is slightly normal than his baseline from 2016. - Hematology has been consulted. (4) Chronic kidney disease, stage V Current Visit: Yes Status: Acute Assessment and plan: Chronic kidney disease stage V. He follows up with Dr. John. - Current creatinine is stable. Plan: -Renally dose antibiotics and avoid nephrotoxic medications including NSAIDs. - Monitor renal function daily - Nephrology currently involved in patient's care. (5) Kidney transplant recipient Current Visit: Yes Status: Chronic Assessment and plan: Kidney transplant 1978, slow decrease in renal function. - Monitored by nephrology (6) DM (diabetes mellitus) Current Visit: No Status: Acute Assessment and plan: History of type 2 diabetes currently diet controlled. We will add low-dose sliding scale insulin during inpatient stay. - Monitor glucoses daily Qualifiers: Diabetes mellitus type: type 2 Diabetes mellitus complication status: with kidney complications Diabetes mellitus complication detail: with chronic kidney disease Chronic kidney disease stage: stage 4 (severe) Qualified Code (s): E11.22 - Type 2 diabetes mellitus with diabetic chronic kidney disease; N18.4 - Chronic kidney disease, stage 4 (severe); Z79.4 - termite technician (current) use of insulin (7) DVT prophylaxis Current Visit: Yes Status: Acute Assessment and plan: Patient currently on heparin drip with transition to warfarin with current DVT - Subjective Interval history: Mr. Ford very pleasant 65-year-old male has been seen and evaluated patient bedside this morning. He is without discomfort and is resting well and is alert and oriented 3. He does complain of some left lower extremity tightness and weakness with his swelling. He said that this has been consistent for the last 6 weeks. He denies any other concerning symptoms including nausea vomiting diarrhea constipation, chest pain new-onset shortness of breath or chest pressure. After discussion of his new oral intake coagulation for his left lower extremity DVT risks of this anticoagulation were discussed with the patient. - Constitutional Vitals: Temp Pulse Resp BP Pulse Ox 98.2 F 86 17 154/93 100 10/10/16 02:49 10/10/16 07:00 10/10/16 07:00 10/10/16 07:00 10/10/16 07:00 Exam: General: Patient alert, awake, oriented 3, interactive, in no acute distress HEENT: Normocephalic, atraumatic, pupils equal reactive to light, nasal cavity patent and open septum median position, oral mucosa moist, uvula midline, neck supple trachea midline no palpable lymphadenopathy, no thyromegaly. Chest: Symmetric bilateral correlating with respiratory effort, effort nonlabored. Cardiac: Regular rate and rhythm, positive S1, S2, no bruits appreciated bilateral carotids, Radial pulses 2+ bilateral, posterior tibial and dorsal pedal pulses 2+ bilateral. Respiratory: Clear to auscultation all lung saucedo Abdomen: Soft, nontender, positive bowel sounds, no palpable masses appreciated on examination Extremities: Left lower extremity demonstrates edema from the foot up to mid thigh. Patient is moving all 4 extremities spontaneously. No signs of erythema. Neurologic: No focal deficits appreciated on examination. Face symmetric, muscle strength symmetric bilateral upper and lower extremities. Internal Medicine: Result - Labs CBC & Chem 7: 10/10/16 07:05 10/10/16 07:05 Labs: Short CBC 10/10/16 Range/Units 07:05 WBC 4.8 (4.3-11.1) K/mcL Hgb 7.8 L D (12.9-16.9) g/dL Hct 24.1 L (37.5-50.1) % Plt Count 75 L (140-400) K/mcL - ABG Interpretation ABG results: PT/INR, D-dimer PT 11.3 Seconds (9.4-12.1) 10/08/16 21:23 - Impressions Impressions Abdomen/Pelvis CT 10/09/16 16:30 IMPRESSION: Stable noncontrast study of the abdomen and pelvis. D/ / Chayo Hahn Cha, MD / Chayo Hahn Cha, MD Interpreting Provider: Chayo Hahn Cha, MD Chest CT 10/09/16 16:30 IMPRESSION: No acute or suspicious intrathoracic process. D/ / Chayo Hahn Cha, MD / Chayo Hahn Cha, MD Interpreting Provider: Chayo Hahn Cha, MD Consult Discharge Plan - Plan Referrals: Vijay Daniel MD [Primary Care Provider] - <Donnie Sweeney P - Last Filed: 10/10/16 18:04> Date of Encounter: 10/10/16 - Constitutional Vitals: Temp Pulse Resp BP Pulse Ox 98.2 F 85 17 147/82 96 10/10/16 02:49 10/10/16 15:00 10/10/16 15:00 10/10/16 15:00 10/10/16 15:00 Internal Medicine: Result - Labs CBC & Chem 7: 10/10/16 13:15 10/10/16 07:05 Labs: Short CBC 10/10/16 10/10/16 Range/Units 07:05 13:15 WBC 4.8 (4.3-11.1) K/mcL Hgb 7.8 L D 9.2 L (12.9-16.9) g/dL Hct 24.1 L 29.1 L (37.5-50.1) % Plt Count 75 L (140-400) K/mcL Neutrophils # 3.6 (1.6-8.9) K/mcL BMP 10/10/16 07:05 Sodium 141 Potassium 4.7 H Chloride 113 H Carbon Dioxide 15 L BUN 82 H Creatinine 5.17 H Glucose 88 Calcium 9.1 Liver Function 10/10/16 Range/Units 07:05 Total Bilirubin 0.4 (0.2-1.2) mg/dL AST 18 (5-34) Units/L ALT < 6 (0-55) Units/L Alkaline Phosphatase 94 (38-126) Units/L Albumin 2.2 L D (3.5-5.0) g/dL - ABG Interpretation ABG results: PT/INR, D-dimer PT 11.3 Seconds (9.4-12.1) 10/08/16 21:23 - Impressions Impressions Abdomen/Pelvis CT 10/09/16 16:30 IMPRESSION: Stable noncontrast study of the abdomen and pelvis. D/ / Chayo Hahn Cha, MD / Chayo Hahn Cha, MD Interpreting Provider: Chayo Hahn Cha, MD Chest CT 10/09/16 16:30 IMPRESSION: No acute or suspicious intrathoracic process. D/ / Chayo Hahn Cha, MD / Chayo Hahn Cha, MD Interpreting Provider: Chayo Hahn Cha, MD - Attending Attestation I examined this patient and my medical decision-making was reviewed with the BRAILLE OPERATOR/PA/Advanced Practice Nurse/Resident Physician. I agree with the documented findings, disposition and treatment plan as described except to the extent set forth below. please see the event note
[2016-10-10 08:42] LABS: Alanine Aminotransferase < 6 Units/L (0-55); Albumin 2.2 g/dL (3.5-5.0); Alkaline Phosphatase 94 Units/L (38-126); Aspartate Amino Transferase 18 Units/L (5-34); BUN/Creatinine Ratio 16 (6-26); Bilirubin,Total 0.4 mg/dL (0.2-1.2); Blood Urea Nitrogen 82 mg/dL (8-26); Calcium 9.1 mg/dL (8.6-10.8); Carbon Dioxide 15 mEq/L (19-29); Chloride 113 mEq/L (98-109); Globulin 2.1 g/dL (2.4-3.5); Glucose 88 mg/dL (70-99); Osmolality,Calculated 316 (280-300); Potassium 4.7 mEq/L (3.5-4.5); Sodium 141 mEq/L (136-145); Total Protein 4.3 g/dL (6.0-8.3); eGFR For African Americans 14 (> 60); eGFR For Non-African Americans 11 (> 60)
[2016-10-10 08:53] LABS: Platelet Estimate Decreased (Normal)
[2016-10-10] MEDS: Insulin LISPRO 300 UNITS/3 ML VIAL SQ SCH ×4 (09:04→22:01)
[2016-10-10] MEDS: Renal Vitamin 1 MG CAPSULE PO SCH (09:09)
[2016-10-10] MEDS: NON-FORMULARY MEDICATION 1 EACH EACH PO SCH (09:09)
[2016-10-10] MEDS: predniSONE 10 MG TABLET PO SCH (09:09)
[2016-10-10] MEDS: Doxycycline 100 MG CAPSULE PO SCH ×2 (09:09→22:01)
[2016-10-10 11:38] LABS: % Iron Saturation 46 % (20-55); Iron 54 mcg/dL (65-175); Transferrin 83 mg/dL (174-364)
[2016-10-10 13:24] LABS: Hematocrit 29.1 % (37.5-50.1); Hemoglobin 9.2 g/dL (12.9-16.9)
--- NOTE | 2016-10-10 16:17 | Nephrology Consult Note ---
Date of Encounter: 10/10/16 Time of Encounter: 16:14 Assessment and Plan (1) Chronic kidney disease, stage V Current Visit: Yes Status: Acute The patient is CJD stage V does seem to be stable. Continue with current management being sure to avoid dehydration as well as nephrotoxins. Adjust medications for renal function. He does not exhibit uremic signs and there is no acute need for renal replacement therapy. Thank you for inviting me to participate in the care of your patient. We will continue to follow his renal function. (2) Deep vein thrombosis of left lower limb Current Visit: Yes Status: Acute Patient is on heparin and will be starting Coumadin. Oncology following. Qualifiers: Qualified Code(s): I82.402 - Acute embolism and thrombosis of unspecified deep veins of left lower extremity (3) Anemia Current Visit: Yes Status: Chronic Oncology/hematology following. Qualifiers: Anemia type: other cause Other causes of anemia: chronic disease, kidney Qualified Code(s): N18.9 - Chronic kidney disease, unspecified (4) Kidney transplant recipient Current Visit: Yes Status: Chronic Continue home medication. (5) DM (diabetes mellitus) Current Visit: No Status: Acute Per primary team. Qualifiers: Diabetes mellitus type: type 2 Diabetes mellitus complication status: with kidney complications Diabetes mellitus complication detail: with chronic kidney disease Chronic kidney disease stage: stage 4 (severe) Qualified Code (s): E11.22 - Type 2 diabetes mellitus with diabetic chronic kidney disease; N18.4 - Chronic kidney disease, stage 4 (severe); Z79.4 - FDC (current) use of insulin History of Present Illness - Reason for Consult Consult date: 10/10/16 Chronic Kidney Disease - Chief Complaint CKD - History of Present Illness Mr. Ford is a 65 yo man with Stage 5 CKD s/p renal transplant followed by Dr. Mcdonnell who was found to have a massive left leg DVT. [facility] was consulted for ongoing management of his CKD Stage 5. The patient report he has been in his usual state of health. His and he has not been moving around much. He denies nausea and denies a metallic taste to food. He denies chest pain and he denies shortness of breath. Past Med Surg Social Fam HX - Past Medical History Medical history: arthritis, cancer, GERD, hepatitis, renal disease Psychiatric history: no psych history - Past Surgical History Surgical History: hip replacement, orthopedic, other, other - Social History Smoking Status: Never smoker Smokeless Tobacco Status: No Alcohol use: none Drug use: none - Family History Father Living Status: Mother Living Status: Medications and Allergies Azathioprine [Imuran] 50 mg PO DAILY 08/13/15 [History] Lansoprazole [Prevacid] 30 mg PO BID 08/13/15 [History] predniSONE [PredniSONE] 10 mg PO DAILY 08/13/15 [History] Doxycycline Hyclate 100 mg PO BID 11/24/15 [History] Fludrocortisone Acetate [Florinef] 0.1 mg PO MOWEFR 11/24/15 [History] Alfuzosin HCl [Uroxatral] 10 mg PO DAILY 05/29/16 [History] Oxycodone HCl [Oxycodone HCl] 10 mg PO Q8H PRN 10/08/16 [History] clonazePAM [Klonopin] 1 mg PO HS 10/08/16 [History] Doxycycline 100 mg PO BID 10/09/16 [History] Allergies NSAIDS (Non-Steroidal Anti-Inflamma Adverse Reaction (Verified 10/08/16 18:39) KIDNEY DISEASE Review of Systems All Systems: reviewed and no additional remarkable complaints except as stated ( As documented in the history of present illness) Exam - Vital Signs Vital signs: Initial Vital Signs Temp Pulse Resp BP Pulse Ox 97.9 F 70 18 105/58 91 10/08/16 18:35 10/08/16 18:35 10/08/16 18:35 10/08/16 18:35 10/08/16 18:35 Vital Signs - Last 8 Hours BP 10/10/16 14:26 141/75 Intake and Output 10/10/16 10/10/16 10/10/16 07:59 15:59 23:59 Intake Total 950 / 950 740 / 740 Output Total 250 / 250 600 / 600 Balance 700 / 700 140 / 140 Intake: IV Fluids 250 / 250 500 / 500 Heparin 25,000 UNIT/500 250 / 250 500 / 500 ML D5W 25,000 unit In 500 ml @ 14 UNIT/KG/HR 16. 003 mls/hr IVC .Q24H NABIL Rx#:[id number] Oral 700 / 700 240 / 240 Output: Urine 250 / 250 600 / 600 Other: Meal Breakfast Percent of Meal Consumed 100% Weight 55.1 kg Blood Glucose* 102 Patient Weight 10/10/16 23:59 Weight 55.1 kg - General Appearance General appearance: well-developed, well-nourished, chronically ill EENT: ATNC Neck: supple Respiratory: clear Cardiology: no edema (Right lower extremity), edema (1-2+ edema in the left lower extremity), regular rate Gastrointestinal: no tenderness Integumentary: warm and dry Neurologic: alert and oriented x3 Musculoskeletal: no cyanosis Psychiatric: mood/affect appropriate Results - Lab Results 10/10/16 13:15 10/10/16 07:05 Most recent lab results Calcium 9.1 mg/dL (8.6-10.8) 10/10/16 07:05 Consult Discharge Plan - Plan Referrals: Vijay Daniel MD [Primary Care Provider] -
[2016-10-10] MEDS ORDERED: 0.9 % Sodium Chloride 1,000 ML IVC SCH (17:00)
[2016-10-10] MEDS ORDERED: Furosemide 20 MG/2 ML VIAL IVP ONE (17:41)
--- NOTE | 2016-10-10 18:04 | Event Note ---
<Donnie Sweeney - Last Filed: 10/10/16 18:04> Date of Encounter: 10/10/16 I examined this patient and my medical decision-making was reviewed with the CINEMA OPERATOR/PA/Advanced Practice Nurse/Resident Physician. I agree with the documented findings, disposition and treatment plan as described except to the extent set forth below. <Gilberto Albarado - Last Filed: 10/10/16 18:46> Date of Encounter: 10/10/16 Time of Encounter: 18:00 Mr. Ford 65-year-old male was found to have a decreased hemoglobin level on lab draws after starting IV heparin and Coumadin for an extensive left lower extremity DVT. Stool occult was positive for blood. Given the patient's current state of health with significant renal demise with chronic kidney disease stage V(renal transplant in 1978), thrombocytopenia and chronic macrocytic anemia. Dr. Barrera with oncology was contacted who said the patient may require IVC filter if his stool occult is positive as he will require long- term anticoagulation with his extensive DVT. Dr. Spears with vascular surgery was contacted and the case was discussed recommended IVC filter but he would require contrast dye. We spoke with Dr. Baker with [facility] who said that the patient may require dialysis after this procedure. This was discussed in detail with Mr. Ford was adamant that he would not go back onto dialysis and he would forego the procedure if that was a risk. We discussed transfer to a tertiary center and at this time he wishes to stay here at [facility]. He wishes to talk with nephrology tomorrow morning. We discussed palliative care and the patient was interested in learning more. We also discussed CODE STATUS and he did not wish to be intubated or have CPR at any point. He wished to be DNR CCA DNI. He received 2 units PRBCs this evening and we will recheck his hemoglobin in the morning. At this time anticoagulation was held due to his drop in hemoglobin and positive occult stool.
[2016-10-10] MEDS ORDERED: 0.9 % Sodium Chloride 250 ML ONE (19:47)
[2016-10-10] MEDS: clonazePAM 1 MG TABLET PO SCH (22:01)
[2016-10-11] MEDS ORDERED: Furosemide 20 MG/2 ML VIAL IVP ONE (05:30)
[2016-10-11 08:11] LABS: INR 1.1; Prothrombin Time 11.6 Seconds (9.4-12.1)
[2016-10-11 08:24] LABS: Basophils % 0.4 %; Eosinophils # 0.1 K/mcL (0.0-0.6); Eosinophils % 0.9 %; Hematocrit 31.7 % (37.5-50.1); Hemoglobin 10.3 g/dL (12.9-16.9); Immature Granulocytes % 3.2 % (0-4); Lymphocytes # 0.4 K/mcL (0.6-4.6); Lymphocytes % 7.8 %; Mean Corpuscular HGB Conc 32.5 g/dL (31.6-35.5); Mean Corpuscular Hemoglobin 32.3 pg (28.0-33.3); Mean Corpuscular Volume 99.4 fL (83.0-100.0); Mean Platelet Volume 11.3 fL (9.4-12.4); Monocytes # 0.5 K/mcL (0.0-1.3); Monocytes % 9.7 %; Neutrophils # 4.1 K/mcL (1.6-8.9); Red Blood Count 3.19 M/mcL (4.19-5.50); Red Cell Distribution Width 18.8 % (11.5-14.5)
[2016-10-11 08:25] LABS: Platelet Count 89 K/mcL (140-400)
[2016-10-11 08:45] LABS: Calcium 9.4 mg/dL (8.6-10.8); Potassium 4.3 mEq/L (3.5-4.5)
[2016-10-11] MEDS: Insulin LISPRO 300 UNITS/3 ML VIAL SQ SCH ×4 (08:57→21:48)
[2016-10-11] MEDS: Doxycycline 100 MG CAPSULE PO SCH ×2 (09:07→21:48)
[2016-10-11] MEDS: Renal Vitamin 1 MG CAPSULE PO SCH (09:07)
[2016-10-11] MEDS: predniSONE 10 MG TABLET PO SCH (09:08)
[2016-10-11] MEDS: *HR* OxyCODONE Immed Rel 5 MG TABLET PO PRN (09:08)
[2016-10-11] MEDS: NON-FORMULARY MEDICATION 1 EACH EACH PO SCH (09:08)
[2016-10-11 10:05] LABS: Uric Acid 8.8 mg/dL (3.5-7.2)
--- NOTE | 2016-10-11 10:39 | Oncology Inp Progress Note ---
Date of Encounter: 10/11/16 Time of Encounter: 11:00 (1) Deep vein thrombosis of left lower limb Current Visit: Yes Status: Acute Assessment and plan: Mr. Ford has an acute left lower extremity deep vein thrombosis. He has been placed on heparin with a clinical response. Coumading initiated 10/09. Hemoglobin dropped 10/10 with associated heme positive stool. Anticoagulation held. Discussed IVC filter placement and patient has agreed. I did review there is a substantial risk for contrast nephropathy, but think this is our best option currently. He would not go on dialysis. Also discussed we could entertain anticoagulation if GI is able to perform endoscopy. This can be done as an outpatient if felt safe. I will consult Dr. Gilmore to establish care. Therefore, would be prudent to hold anticoaguation moving forward. Plan for IVC filter tomorrow. I spent 35 minutes counseling the patient and family today. Qualifiers: Qualified Code(s): I82.402 - Acute embolism and thrombosis of unspecified deep veins of left lower extremity Oncology: Subj Interval history: Patient had decreased in H/H yesterday. I was contacted by resident and recommended repeat CBC and heme check stool which returned positive. He received 2 U PRBC. Also discussed IVC filter if NOT an anticoagulation candidate. This was d/w vascular and given need for IV contrast, was deferred by patient yesterday, but Dr. Vega meeting with patient currently, and they are willing to proceed. Anticoagulation was held. H/H stable this AM. Family has multiple questions. - Constitutional Vitals: Vital Signs Temp Pulse Resp BP Pulse Ox 10/11/16 07:45 98.5 F 70 16 135/70 99 10/11/16 05:35 99 F 66 16 150/90 98 10/11/16 03:59 98.3 F 67 16 100 10/11/16 01:51 98.9 F 66 16 128/81 100 10/11/16 01:36 98.7 F 74 18 139/88 100 10/11/16 01:10 98.3 F 74 16 144/82 100 10/10/16 22:30 100 10/10/16 22:27 98.3 F 70 16 134/81 100 10/10/16 22:15 98.2 F 74 16 136/77 10/10/16 22:00 97.7 F 77 14 133/76 10/10/16 19:33 98.6 F 77 16 131/44 100 10/10/16 15:00 85 17 147/82 96 10/10/16 14:26 141/75 Intake and Output 10/11/16 10/11/16 10/11/16 00:59 08:59 16:59 Intake Total 0 / 0 700 / 700 Output Total 1700 / 1700 Balance 0 / 0 -1000 / -1000 Intake: Oral 0 / 0 0 / 0 Blood Product 0 / 0 700 / 700 Rbcs Leuko Poor As-3 350 / 350 Unit [id number] Rbcs Leuko Poor As-3 2nd 0 / 0 350 / 350 Unit [id number] Output: Urine 1700 / 1700 Other: # Voids 0 0 Weight 56.1 kg Blood Glucose* 114 87 Patient Weight 10/12/16 00:59 Weight 56.1 kg - Head Head exam: Present: atraumatic, normal inspection, normocephalic - Eye Eye exam: Present: conjuntiva pink, sclera anicteric - ENT ENT exam: Present: mucous membranes moist, normal oropharynx - Neck Neck exam: Present: full ROM, normal inspection - Respiratory Respiratory exam: Present: CTAB - Cardiovascular Cardiovascular exam: Present: RRR - GI/Abdominal GI/Abdominal exam: Present: normal bowel sounds, soft - Extremities Exam Extremities exam: Present: normal inspection, pedal edema (on left, improved from Saturday) Oncology: Obj Data - Labs CBC & Chem 7: 10/11/16 07:45 10/11/16 07:45 Labs: Laboratory Results - last 24 hr 10/10/16 10/10/16 10/10/16 07:05 08:03 11:34 WBC RBC Hgb Hct MCV MCH MCHC RDW Plt Count MPV Immature Gran % Seg Neutrophils % Lymphocytes % Monocytes % Eosinophils % Basophils % Neutrophils # Lymphocytes # Monocytes # Eosinophils # Basophils # PT INR APTT Sodium Potassium Chloride Carbon Dioxide BUN Creatinine Est GFR ( Amer) Est GFR (Non-Af Amer) BUN/Creatinine Ratio Glucose POC Glucose 84 102 H Calculated Osmolality Uric Acid Calcium Iron 54 L % Saturation 46 Transferrin 83 L Ferritin Stool Occult Blood Blood Type Antibody Screen Crossmatch 10/10/16 10/10/16 10/10/16 13:00 13:15 13:15 WBC RBC Hgb 9.2 L Hct 29.1 L MCV MCH MCHC RDW Plt Count MPV Immature Gran % Seg Neutrophils % Lymphocytes % Monocytes % Eosinophils % Basophils % Neutrophils # Lymphocytes # Monocytes # Eosinophils # Basophils # PT INR APTT 63.1 H Sodium Potassium Chloride Carbon Dioxide BUN Creatinine Est GFR ( Amer) Est GFR (Non-Af Amer) BUN/Creatinine Ratio Glucose POC Glucose Calculated Osmolality Uric Acid Calcium Iron % Saturation Transferrin Ferritin Stool Occult Blood Positive A Blood Type Antibody Screen Crossmatch 10/10/16 10/10/16 10/10/16 13:15 17:01 18:09 WBC RBC Hgb Hct MCV MCH MCHC RDW Plt Count MPV Immature Gran % Seg Neutrophils % Lymphocytes % Monocytes % Eosinophils % Basophils % Neutrophils # Lymphocytes # Monocytes # Eosinophils # Basophils # PT INR APTT Sodium Potassium Chloride Carbon Dioxide BUN Creatinine Est GFR ( Amer) Est GFR (Non-Af Amer) BUN/Creatinine Ratio Glucose POC Glucose 127 H Calculated Osmolality Uric Acid Calcium Iron % Saturation Transferrin Ferritin 458 H Stool Occult Blood Blood Type O POSITIVE Antibody Screen NEGATIVE Crossmatch See Detail 10/10/16 10/11/16 10/11/16 19:37 07:45 07:45 WBC 5.3 RBC 3.19 L Hgb 10.3 L Hct 31.7 L MCV 99.4 MCH 32.3 MCHC 32.5 RDW 18.8 H Plt Count 89 L MPV 11.3 Immature Gran % 3.2 Seg Neutrophils % 78.0 Lymphocytes % 7.8 Monocytes % 9.7 Eosinophils % 0.9 Basophils % 0.4 Neutrophils # 4.1 Lymphocytes # 0.4 L Monocytes # 0.5 Eosinophils # 0.1 Basophils # 0.0 PT 11.6 INR 1.1 APTT Sodium Potassium Chloride Carbon Dioxide BUN Creatinine Est GFR ( Amer) Est GFR (Non-Af Amer) BUN/Creatinine Ratio Glucose POC Glucose 114 H Calculated Osmolality Uric Acid Calcium Iron % Saturation Transferrin Ferritin Stool Occult Blood Blood Type Antibody Screen Crossmatch 10/11/16 07:45 WBC RBC Hgb Hct MCV MCH MCHC RDW Plt Count MPV Immature Gran % Seg Neutrophils % Lymphocytes % Monocytes % Eosinophils % Basophils % Neutrophils # Lymphocytes # Monocytes # Eosinophils # Basophils # PT INR APTT Sodium 142 Potassium 4.3 Chloride 111 H Carbon Dioxide 21 BUN 81 H Creatinine 4.77 H Est GFR ( Amer) 15 L Est GFR (Non-Af Amer) 12 L BUN/Creatinine Ratio 17 Glucose 83 POC Glucose Calculated Osmolality 318 H Uric Acid 8.8 H Calcium 9.4 Iron % Saturation Transferrin Ferritin Stool Occult Blood Blood Type Antibody Screen Crossmatch - ABG Interpretation ABG results: PT/INR, D-dimer PT 11.6 Seconds (9.4-12.1) 10/11/16 07:45 Consult Discharge Plan - Plan Referrals: Vijay Daniel MD [Primary Care Provider] -
[2016-10-11] MEDS ORDERED: Colchicine 0.6 MG TABLET PO ONE (10:41)
--- NOTE | 2016-10-11 11:59 | Vascular/Endovasc Consult Note ---
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 Patient is aware that the lifespan of this kidney function is limited. This is being managed by the nephrology division. (2) Deep vein thrombosis of lower extremity Current Visit: Yes Status: Acute Patient has a symptomatic left lower extremity iliofemoral DVT. As noted elsewhere the patient would typically be a straightforward candidate for IVC filter. A great deal discussion was necessary to talk to him and his family regarding the use of intravenous contrast and how this may exacerbate his already dismal renal function. It was made very clear to the patient that the use of even small amount of contrast may push the patient into the need for dialysis. He understands this issue but refuses dialysis. He wishes to have the filter put in in order to avoid the potential 30% risk of fatal pulmonary embolism. He has been judged not to be an appropriate candidate for anticoagulation at this time and is also being seen by the hospitalist as well as nephrology and the hematology services. Qualifiers: Affected thrombotic vein of extremity: iliac Laterality: left Chronicity : acute Qualified Code(s): I82.422 - Acute embolism and thrombosis of left iliac vein - History of Present Illness Consult date: 10/11/16 Requesting physician: Donnie Sweeney Consult reason: Left DVT with hemorrhage and stage V chronic kidney disease Chief complaint: Left lower extremity swelling History of present illness: Mr. Ford is a 65 year old male Seen in consultation on [facility]. The patient was admitted yesterday. He had gone in to see Dr. Segundo. He was noted to have a left lower extremity that was edematous. He was sent to the emergency room. A duplex scan demonstrated an iliofemoral DVT that was judged to be acute. He was also also found to be anemic and required 2 units of blood. He responded and his hemoglobin was then 10.2. He had occult blood positive stools. The patient also has a long history of a kidney transplant. This was placed approximate 40 years ago. Kidney function is very poor. His initial creatinine was greater than 5. The novel oral anticoagulants were not indicated neither was Lovenox. Therefore the patient was initially started on heparin but this was discontinued due to the GI bleeding. Faster surgery was asked to see the patient in consultation regarding the placement of an IVC filter. Complicating this issue is the patient 's adamant refusal to accept dialysis should he go on into full renal failure requiring renal replacement therapy. The patient is aware that without dialysis he would then be placed in a hospice condition and his lifespan would be measured and a number of days. The patient wants to have the IVC filter. He has decided after a long and detailed conversation with him and his family and he is well aware of the risks and benefits as well as complications and alternatives to the placement of an IVC filter. Past Med Surg Social Fam HX - Past Medical History Medical history: arthritis, cancer, GERD, hepatitis, renal disease Psychiatric history: no psych history - Past Surgical History Surgical History: hip replacement, orthopedic, other, other - Social History Smoking Status: Never smoker Smokeless Tobacco Status: No Alcohol use: none Drug use: none - Family History Father Living Status: Mother Living Status: Medications and Allergies Azathioprine [Imuran] 50 mg PO DAILY 08/13/15 [History] Lansoprazole [Prevacid] 30 mg PO BID 08/13/15 [History] predniSONE [PredniSONE] 10 mg PO DAILY 08/13/15 [History] Doxycycline Hyclate 100 mg PO BID 11/24/15 [History] Fludrocortisone Acetate [Florinef] 0.1 mg PO MOWEFR 11/24/15 [History] Alfuzosin HCl [Uroxatral] 10 mg PO DAILY 05/29/16 [History] Oxycodone HCl [Oxycodone HCl] 10 mg PO Q8H PRN 10/08/16 [History] clonazePAM [Klonopin] 1 mg PO HS 10/08/16 [History] Doxycycline 100 mg PO BID 10/09/16 [History] Allergies NSAIDS (Non-Steroidal Anti-Inflamma Adverse Reaction (Verified 10/08/16 18:39) KIDNEY DISEASE All Systems Review: A 10-system review of systems was performed and is negative for pertinent findings except as documented above in the HPI. Exam General: Present: Conversant, No Apparent Distress, Other (The patient is an ill appearing somewhat cachectic elderly white male who looks older than his stated age.) HEENT: Present: Atraumatic Neck: Absent: JVD Cardiac: Present: Reg Rate and Rhythm, Normal S1 and S2 Lungs: Present: Normal Breath Sounds Neuro: Present: Alert and responsive, Cranial nerves grossly intact Abdomen: Present: Soft, Non-tender. Absent: Masses Vascular: Present: Edema (Patient has edema of the left lower extremity. He has marked cachexia and muscle wasting of his calves. The patient is status post a right replacement which needed to be removed and has a abnormal function of the right hip with distorted anatomy of the pelvis.) Skin: Present: No rashes noted on visualized skin Consult Discharge Plan - Plan Referrals: Vijay Daniel MD [Primary Care Provider] -
[2016-10-11] MEDS: *HR* Acetylcysteine 20% 600 MG/3 ML ORAL SYRINGE PO SCH ×2 (12:02→22:55)
[2016-10-11] MEDS ORDERED: Sodium Bicarbonate 75 MEQ in 0.45 % Sodium Chloride 1,000 ML IVC SCH (12:15)
[2016-10-11] MEDS: Sodium Bicarbonate 75 MEQ in 0.45 % Sodium Chloride 1,000 ML IVC SCH (12:50)
--- NOTE | 2016-10-11 14:15 | Nephrology Progress Note ---
Date of Encounter: 10/11/16 Time of Encounter: 14:11 - Assessment and Plan (1) Chronic kidney disease, stage V Current Visit: Yes Status: Chronic Creatinine overall stable. Unfortunately patient needs ivp dye exposure to place IVC filter. Will provide hydration and mucomyst to maximize protection from FRANCES. I had a conversation with the primary team yesterday and today about the plan I had a very long conversation with the patient and family members regarding the risk of FRANCES and the high likelyhood of FRANCES and the need for dialysis. Spoke for about 34 minutes about the pros, cons, and possibilities. During the conversation the patient indicated that he has a left upper arm fistula in case he needs dialysis. Secondary to the risk of FRANCES I recommend the patient stay in the hospital for 72 hours post contrast exposure. over 40 minutes spent in the care of this patient with greater than 1/2 of that time spent in coordination of care and/or counseling. (2) Deep vein thrombosis of left lower limb Current Visit: Yes Status: Acute per primary team. Patient had acute anemia likely from gi source. Patient now needs an ivc filter. Qualifiers: Qualified Code(s): I82.402 - Acute embolism and thrombosis of unspecified deep veins of left lower extremity (3) Anemia Current Visit: Yes Status: Chronic acute anemia. s/p transfusion. defer work-up to the primary team. Qualifiers: Anemia type: other cause Other causes of anemia: chronic disease, kidney Qualified Code(s): N18.9 - Chronic kidney disease, unspecified (4) Kidney transplant recipient Current Visit: Yes Status: Chronic continue home medication. (5) DM (diabetes mellitus) Current Visit: No Status: Acute per primary team. 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 His anticoagulation was discontinued and he was transfused. I spoke with the primary team regarding the need for IVC filter and iodonated contrast dye exposure needed for the placement of the IVC filter. I had a long discussion with the patient and his family at the bedside regarding the risk of progression of his renal function and the possible need for dialysis. Objective - Vital Signs Vital signs: Vital Signs Temp Pulse Resp BP Pulse Ox 10/11/16 12:08 97.9 F 85 16 143/84 99 10/11/16 07:45 98.5 F 70 16 135/70 99 10/11/16 05:35 99 F 66 16 150/90 98 10/11/16 03:59 98.3 F 67 16 100 10/11/16 01:51 98.9 F 66 16 128/81 100 10/11/16 01:36 98.7 F 74 18 139/88 100 10/11/16 01:10 98.3 F 74 16 144/82 100 10/10/16 22:30 100 10/10/16 22:27 98.3 F 70 16 134/81 100 10/10/16 22:15 98.2 F 74 16 136/77 10/10/16 22:00 97.7 F 77 14 133/76 10/10/16 19:33 98.6 F 77 16 131/44 100 10/10/16 15:00 85 17 147/82 96 10/10/16 14:26 141/75 Intake and Output 10/10/16 10/11/16 10/11/16 23:59 07:59 15:59 Intake Total 0 / 0 700 / 700 Output Total 900 / 900 1300 / 1300 Balance 0 / 0 -200 / -200 -1300 / -1300 Intake: Oral 0 / 0 0 / 0 Blood Product 0 / 0 700 / 700 Rbcs Leuko Poor As-3 350 / 350 Unit [id number] Rbcs Leuko Poor As-3 2nd 0 / 0 350 / 350 Unit [id number] Output: Urine 900 / 900 1300 / 1300 Other: # Voids 0 0 Weight 56.1 kg Blood Glucose* 114 87 131 Patient Weight 10/11/16 23:59 Weight 56.1 kg - General Appearance General appearance: Present: well-developed, chronically ill, frail EENT: Present: ATNC Neck: Present: supple Additional Comments: respirations are unlabored. Cardiology: Present: regular rate Dialysis Vascular Access: Arteriovenous Fistula (left upper arm/antecubital) thrill: Yes bruit: Yes Neurologic: Present: alert and oriented x3 Psychiatric: Present: mood/affect appropriate - Lab 10/11/16 07:45 10/11/16 07:45 Most recent lab results Calcium 9.4 mg/dL (8.6-10.8) 10/11/16 07:45 Consult Discharge Plan - Plan Referrals: Vijay Daniel MD [Primary Care Provider] - 10/17/16 1:00 pm
--- NOTE | 2016-10-11 14:44 | Internal Med Progress Note ---
<Temo Kay - Last Filed: 10/11/16 14:40> Date of Encounter: 10/11/16 Time of Encounter: 14:40 - Assessment and plan (1) Deep vein thrombosis of lower extremity Current Visit: Yes Status: Acute Assessment and plan: Extensive DVT left lower extremity confirmed by ultrasound. Patient had an acute GI bleed on anticoagulation and for further anticoagulation is contraindicated. Discussed the options at length with the patient and he wishes to proceed with IVC filter which will be placed today by vascular surgery. No evidence of pulmonary embolism at this time. Qualifiers: Affected thrombotic vein of extremity: iliac Laterality: left Chronicity : acute Qualified Code(s): I82.422 - Acute embolism and thrombosis of left iliac vein (2) Acute blood loss anemia Current Visit: Yes Status: Acute Assessment and plan: Due to GI source and anticoagulation with heparin. Heparin has been stopped. Patient was transfused 2 units and hemoglobin recovered nicely and stabilized. No active bleeding. The case was discussed with gastroenterology who feel the patient is a poor candidate for endoscopy at this time. Endoscopy may be considered as an outpatient. (3) Chronic kidney disease, stage V Current Visit: Yes Status: Chronic Assessment and plan: Creatinine very mildly improved today. Given that the patient will require a small amount of IV contrast for IVC filter placement there is a risk of progression to dialysis with this. This was discussed at length with the patient and although he refuses dialysis should the need arise he does understand the risks and benefits of IV contrast to place the IVC filter and wishes to proceed. We will give Mucomyst prior to the procedure and for 2 days after to maximize renal protection. Continue to monitor creatinine. Nephrology is following. (4) Kidney transplant recipient Current Visit: Yes Status: Chronic Assessment and plan: Kidney transplant 1978. Worsening renal function as discussed above. (5) DM (diabetes mellitus) Current Visit: No Status: Acute Assessment and plan: Blood sugars under good control. Continues sliding scale insulin. Qualifiers: Diabetes mellitus type: type 2 Diabetes mellitus complication status: with kidney complications Diabetes mellitus complication detail: with chronic kidney disease Chronic kidney disease stage: stage 4 (severe) Qualified Code (s): E11.22 - Type 2 diabetes mellitus with diabetic chronic kidney disease; N18.5 - Chronic kidney disease, stage 5; Z79.4 - terminal makeup operator (current) use of insulin (6) Severe protein-calorie malnutrition Current Visit: Yes Status: Acute Assessment and plan: Due to inadequate food intake and lack of appetite, likely secondary to depression with a BMI of 16.8. We will supplement as patient allows. (7) DVT prophylaxis Current Visit: Yes Status: Acute Assessment and plan: Contraindicated at this time due to acute blood loss on anticoagulation, and acute DVT precludes the use of the EPCD's. IVC filter is being placed as discussed above. - Subjective Interval history: Patient seen and examined at bedside. Patient states he feels pretty good today. He states his leg pain is slightly improved. He does report pain in his left hand and wrist. He denies any blood in the stool. - Constitutional Vitals: Temp Pulse Resp BP Pulse Ox 97.9 F 85 16 143/84 99 10/11/16 12:08 10/11/16 12:08 10/11/16 12:08 10/11/16 12:08 10/11/16 12:08 General appearance: Present: A&O X 3, pleasant, no acute distress - Respiratory Respiratory exam: Present: CTAB. Absent: rales, rhonchi, wheezes - Cardiovascular Cardiovascular exam: Present: RRR. Absent: gallop, rubs, systolic murmur - GI/Abdominal GI/Abdominal exam: Present: normal bowel sounds, soft. Absent: distended, tenderness - Extremities Exam Additional comments: The left lower extremity is swollen, erythematous. No bleeding or discharge noted. The left wrist and hand show mild erythema with swelling and warmth. - Neurological Exam Neurological exam: Present: alert, CN II-XII intact, oriented X3, no focal deficits - Psychiatric Psychiatric exam: Present: depressed Internal Medicine: Result - Labs CBC & Chem 7: 10/11/16 07:45 10/11/16 07:45 Labs: Short CBC 10/11/16 Range/Units 07:45 WBC 5.3 (4.3-11.1) K/mcL Hgb 10.3 L (12.9-16.9) g/dL Hct 31.7 L (37.5-50.1) % Plt Count 89 L (140-400) K/mcL Neutrophils # 4.1 (1.6-8.9) K/mcL BMP 10/11/16 07:45 Sodium 142 Potassium 4.3 Chloride 111 H Carbon Dioxide 21 BUN 81 H Creatinine 4.77 H Glucose 83 Calcium 9.4 - ABG Interpretation ABG results: PT/INR, D-dimer PT 11.6 Seconds (9.4-12.1) 10/11/16 07:45 - Impressions Impressions Hand X-Ray 10/11/16 09:42 IMPRESSION: There are degenerative changes in the radiocarpal joint space and MCP joints which are severe at the 1st MCP joint. Given the more proximal distribution degenerative changes, clinical correlation for rheumatoid arthritis recommended. No acute osseous abnormality identified in the left hand or wrist. D/ / Charo Ross MD / Charo Ross MD Interpreting Provider: Charo Ross MD Wrist X-Ray 10/11/16 09:42 IMPRESSION: There are degenerative changes in the radiocarpal joint space and MCP joints which are severe at the 1st MCP joint. Given the more proximal distribution degenerative changes, clinical correlation for rheumatoid arthritis recommended. No acute osseous abnormality identified in the left hand or wrist. D/ / Charo Ross MD / Charo Ross MD Interpreting Provider: Charo Ross MD Consult Discharge Plan - Plan Referrals: Vijay Daniel MD [Primary Care Provider] - 10/17/16 1:00 pm <Donnie Sweeney P - Last Filed: 10/11/16 16:58> Date of Encounter: 10/11/16 - Constitutional Vitals: Temp Pulse Resp BP Pulse Ox 98.3 F 80 16 139/87 98 10/11/16 15:42 10/11/16 15:42 10/11/16 15:42 10/11/16 15:42 10/11/16 15:42 Internal Medicine: Result - Labs CBC & Chem 7: 10/11/16 07:45 10/11/16 07:45 Labs: Short CBC 10/11/16 Range/Units 07:45 WBC 5.3 (4.3-11.1) K/mcL Hgb 10.3 L (12.9-16.9) g/dL Hct 31.7 L (37.5-50.1) % Plt Count 89 L (140-400) K/mcL Neutrophils # 4.1 (1.6-8.9) K/mcL BMP 10/11/16 07:45 Sodium 142 Potassium 4.3 Chloride 111 H Carbon Dioxide 21 BUN 81 H Creatinine 4.77 H Glucose 83 Calcium 9.4 - ABG Interpretation ABG results: PT/INR, D-dimer PT 11.6 Seconds (9.4-12.1) 10/11/16 07:45 - Impressions Impressions Hand X-Ray 10/11/16 09:42 IMPRESSION: There are degenerative changes in the radiocarpal joint space and MCP joints which are severe at the 1st MCP joint. Given the more proximal distribution degenerative changes, clinical correlation for rheumatoid arthritis recommended. No acute osseous abnormality identified in the left hand or wrist. D/ / Charo Ross MD / Charo Ross MD Interpreting Provider: Charo Ross MD Wrist X-Ray 10/11/16 09:42 IMPRESSION: There are degenerative changes in the radiocarpal joint space and MCP joints which are severe at the 1st MCP joint. Given the more proximal distribution degenerative changes, clinical correlation for rheumatoid arthritis recommended. No acute osseous abnormality identified in the left hand or wrist. D/ / Charo Ross MD / Charo Ross MD Interpreting Provider: Charo Ross MD - Attending Attestation I examined this patient and my medical decision-making was reviewed with the YARN MAN/PA/Advanced Practice Nurse/Resident Physician. I agree with the documented findings, disposition and treatment plan as described except to the extent set forth below.
[2016-10-11] MEDS ORDERED: Heparin 1,000 UNITS/500 mL NS 500 ML ONE (18:41)
[2016-10-11] MEDS ORDERED: *HR* FentaNYL (PF) 100 MCG/2 ML VIAL ONE (18:59)
[2016-10-11] MEDS ORDERED: *HR* Midazolam HCl 2 MG/2 ML VIAL ONE (18:59)
[2016-10-11] MEDS ORDERED: 0.9 % Sodium Chloride 1,000 ML ONE (18:59)
--- NOTE | 2016-10-11 19:36 | Procedure Note ---
Date of procedure: 10/11/16 Pre-op diagnosis: Letf Leg DVT/Hemorhage/CKD Stage V Post-op diagnosis: same Procedure: IVCgram Placement of IVC Filter Anesthesia: MAC Surgeon: Tommie Rojas Condition: stable Disposition: floor (15 ml of contrast used)
--- NOTE | 2016-10-11 20:10 | Invasive Diagnostic Lab Proc ---
Name: Gilberto Ford Date of Study: 10/11/2016 Date: 1950 Ht: 183.0 in Medical Record#: [id number] Age: 65 Wt: 56.1 lb Gender: Male BSA: 1.74 Order #: [id number] BMI: 16.75 Physicians Performing MD: Tommie Rojas MD, FACS Referring MD: Referring MD: Staff Name Position Time In Sites, Jie RT (R) [employer] Operator Sites, Jie RT (R) Scrub Frances Hartmann RN Monitor Indications DVT, Unilateral Contraindication to anticoagulation Procedures Performed IVC FILTER PLACEMENT Pre-Procedure Checklist Informed consent is complete signed and on chart. H\\T\\P is on chart. ID band is on and ID verified with patient. Patient NPO for procedure The procedure was described for the patient and questions were answered. ECG is on chart. Plan of Care Patient will tolerate the procedure without complications. Adequate level of comfort will be maintained. Hemodynamics will remain stable Patient will recover from procedure without complications. Respiratory function will be maintained. Cardiac rhythm will remain stable. Patient temperature will be maintained. Patient and/or family have verbalized understanding of the procedure. Patient Education Chief Complaint/Reason for Test: IVC filter Developmental Category: Adult (18-64 years) Learning Barriers: None Education Needs: Procedure Education Method: Verbal Information Taught: IVC filter Educational Evaluation: Able to repeat information Intravenous Access Time IV Size Location DC'd Fluid/Drip Rate Units RN 22g 1" Patent On Arrival Rt Arm Allergies NSAIDS (Non-Steroidal Anti-Inflamma Vital Signs Time BP Systolic BP Diastolic HR O2 Sats ASA 07:07 PM 07:07 PM 07:05 PM 137 84 90 100 07:10 PM 133 73 74 100 07:15 PM 132 70 70 100 07:20 PM 126 69 70 100 07:25 PM 123 69 71 100 07:30 PM 124 72 68 100 07:35 PM 132 73 67 100 Procedure Medications Time Medication Dose Units Method Route 07:06 PM Versed 1 mg Intravenous 07:08 PM Oxygen 2 L/min nasal cannula 07:16 PM Lidocaine 2% 10 ml Subcutaneous ASA Classification: CLASS III- Severe systemic disease (i.e. prior AMI, diabetes with vascular complications, morbid obesity) Ryland Score Preprocedure Postprocedure Activity 2- Moves 4 extremities sustained head lift Activity 2- Moves 4 extremities sustained head lift Circulation 2- SBP +/= 20 points of pre-anesthetic level Circulation 2- SBP +/= 20 points of pre-anesthetic level Consciousness 2- Awake and alert oriented x 3 Consciousness 2- Awake and alert oriented x 3 O2 Saturation 2- Able to maintain O2 satruation of 92% on room air O2 Saturation 2- Able to maintain O2 satruation of 92% on room air Respiratory 2- Able to deep breathe and cough well Respiratory 2- Able to deep breathe and cough well Total Score 10 Total Score 10 Contrast: Isovue 300- 150ml Contrast Amount: 15 ml Fluoro Dose: 0 mGy Procedure Log Time Note Entered By 07:05 PM Pt arrived to laboratory apparatus glass grinder 1 at 19:05 [email or web address] 07:05 PM Cara Marin RN Position: [employer] Transit Operator Time in: 19:05 [email or web address] 07:05 PM Jie Purdy RT (R) Position: Scrub Time in: 19:05 [email or web address] 07:05 PM Frances Hartmann RN Position: Monitor Time in: 19:05 [email or web address] 07:06 PM 19:06 Versed 1 mg Intravenous Given by Cara Marin RN [email or web address] 07:07 PM Physician arrived 19:07 [email or web address] 07:07 PM ASA Class CLASS III- Severe systemic disease (i.e. prior AMI, diabetes with vascular complications, morbid obesity) [email or web address] 07:07 PM Adin and khari completed [email or web address] 07:07 PM Sign in performed according to hospital policy. [email or web address] 07:07 PM Procedure start 19:07 [email or web address] 07:07 PM Time: 19:07 Is patient comfortable and pain free?: Yes [email or web address] 07:07 PM Time: 19:07LOC: 5 = Fully awake and oriented or at pre-proc level [email or web address] 07:08 PM 19:08 Oxygen at 2 L/min per nasal cannula by Cara Marin RN [email or web address] 07:13 PM Time out perfomed [email or web address] 07:16 PM 19:16 10 ml Lidocaine 2% to right groin Subcutaneous Given By Tommie Rojas MD, FACS [email or web address] 07:19 PM Ultrasound, Sonosite, utilized to obtain vascular access [email or web address] 07:20 PM Patient Charges- Cook Celect IVC Filter ,Tray Pack and Pulse Oximetry. [email or web address] 07:21 PM Access obtain and IVC Filter sheath inserted Rt Femoral vein. [email or web address] 07:23 PM Time: 19:07LOC: 4 = Oriented but drowsy [email or web address] 07:23 PM Time: 19:07 Is patient comfortable and pain free?: Yes [email or web address] 07:30 PM IVC Filter inserted into the inferior vena cava [email or web address] 07:31 PM IVC Filter deployed into the inferior vena cava [email or web address] 07:31 PM Procedure completed at 19:31 [email or web address] 07:32 PM Sign Out completed: Radiation Dose 0 mGy Fluoro Time: 2.1 minutes. Isovue 300- 150ml contrast 15 ml given by Tommie Rojas MD, FACS. Complications: None. Confirmed administered medications:Yes [email or web address] 07:32 PM Isovue 300- 150ml,1 bottle(s) used. [email or web address] 07:32 PM Arterial sheath pulled using manual compression and V+Pad for 12 minutes by Sites, [facility] RT (R[email or web address] Post Blood Pressure: 124/72 [email or web address] 07:32 PM Post EKG: NSR [email or web address] 07:32 PM Information taught: IVC filter [email or web address] 07:33 PM Education needs: Procedure, Plan of Care, and Responsibilities of Patient in Care [email or web address] 07:33 PM Learning barriers: [email or web address] PM Education methods: Verbal [email or web address] 07:33 PM Education evaluation: Able to repeat information [email or web address] 07:33 PM Patient pain level 0/10 [email or web address] 07:33 PM Site status No bleeding/hematoma - Rt Groin as reported by Sites, Jie RT (R) at 19:33 [email or web address] 07:33 PM Pt taken to [facility] Room# 18 [email or web address] 06:37 PM Case Start 07:04 PM PVIStat 07:04 PM Vitals capture started with the following parameters, Patient=Adult, Interval=5 min, Initial Zatzstzt=858 mmHg, Deflation Rate=5 mmHg, Cuff placed on Right Arm 07:05 PM HR=90 bpm, UCJU=776/84 mmhg, XhF0=233.0 %, Resp=14 B/min 07:10 PM HR=74 bpm, ISUL=002/73 mmhg, AcZ3=978.0 %, Resp=13 B/min 07:15 PM HR=70 bpm, AVLG=775/70 mmhg, IqL5=060.0 %, Resp=12 B/min 07:20 PM HR=70 bpm, BGBB=849/69 mmhg, UsW0=543.0 %, Resp=12 B/min 07:25 PM HR=71 bpm, UOXJ=871/69 mmhg, PnF0=175.0 %, Resp=17 B/min 07:30 PM HR=68 bpm, PHPU=927/72 mmhg, XpU3=179.0 %, Resp=11 B/min 07:34 PM NIBP STAT measurement started. 07:35 PM HR=67 bpm, IUCN=375/73 mmhg, ZhG4=706 %, Resp=10 B/min 07:40 PM pts family is in his room, Dr. Rojas to talk to them on the floor [email or web address] 07:43 PM Opsite applied [email or web address] 07:43 PM Patient out of room 19:43 [email or web address] Post Procedure Information Blood Pressure: 124/72 mmHg Rhythm: NSR Site Checks Time Location Status Staff Sheath In? Note 7:33:00 PM Rt Groin No bleeding/ No Hematoma Sites, Jie RT (R) Pulses Time Site Pre Procedure Post Procedure Note Bilateral DP \\T\\ PT 1+ Bilateral radial 2+ Updated by Frances Hartmann RN on 10/11/2016 7:44:02 PM electronically signed on 10/11/2016 8:04:50 PM with status of Final
--- NOTE | 2016-10-11 20:13 | Invasive Diagnostic Lab ---
Name: Gilberto Ford Date of Study: 10/11/2016 Date: 1950 Ht: 183.0 in Medical Record#: [id number] Age: 65 Wt: 56.1 lb Gender: Male BSA: 1.74 Order #: [id number] Fluoro: 0 mGy BMI: 16.75 Performing MD: Tommie Rojas MD, FACS Referring MD: Gómez Baker MD Procedures Performed: IVC FILTER PLACEMENT Indications: DVT, Unilateral Contraindication to anticoagulation Impressions: The renal veins at the L1-L2 interspace and inferior vena cava was patent. There was no extravasation of contrast and no intraluminal filling defects. Implantation of an IVC filter with no adverse events. Recommendations: Patient will return for a follow-up visit prn only. History/ Risk Factors: Technique After obtaining fully informed consent the patient was brought to the catheterization laboratory in the fasting state. The patient was prepped in the usual sterile fashion. Local anesthetic was infused subcutaneously in the right groin. The right femoral vein was punctured under ultrasound guidance. The vein was cannulated with an 18 gauge needle. A wire was advanced through the needle and the needle was exchanged for the filter sheath. The sheath was placed in the right Femoral vein. An inferior venacavogram was then performed. The filter sheath was then advanced to the L2-L3 interspace and the filter was deployed. A completion cavogram was then performed which revealed no extravasation of contrast, adequate infrarenal placement of the filter and no intraluminal filling defects. The sheath was removed. Manual pressure was applied to aid in hemostasis. The patient was then taken to the recovery room in stable condition. Total Contrast: Isovue 300- 150ml 15mls . Updated by Tommie Rojas MD, FACS on 10/11/2016 8:08:26 PM Tommie Rojas MD electronically signed on 10/11/2016 8:09:23 PM with status of Final
[2016-10-11] MEDS: clonazePAM 1 MG TABLET PO SCH (21:48)
[2016-10-12] MEDS: *HR* OxyCODONE Immed Rel 5 MG TABLET PO PRN ×3 (02:09→16:55)
[2016-10-12] MEDS: Sodium Bicarbonate 75 MEQ in 0.45 % Sodium Chloride 1,000 ML IVC SCH ×2 (06:07→19:23)
[2016-10-12 06:39] LABS: Hematocrit 31.3 % (37.5-50.1); Hemoglobin 10.2 g/dL (12.9-16.9); Immature Platelets 4.5 % (1.1-6.1); Mean Corpuscular HGB Conc 32.6 g/dL (31.6-35.5); Mean Corpuscular Hemoglobin 31.8 pg (28.0-33.3); Mean Corpuscular Volume 97.5 fL (83.0-100.0); Mean Platelet Volume 10.9 fL (9.4-12.4); Red Blood Count 3.21 M/mcL (4.19-5.50); Red Cell Distribution Width 18.6 % (11.5-14.5); Segmented Neutrophils % 75.8 %
[2016-10-12 06:40] LABS: Basophils % 0.2 %; Eosinophils # 0.1 K/mcL (0.0-0.6); Eosinophils % 1.5 %; Immature Granulocytes % 1.8 % (0-4); Lymphocytes # 0.4 K/mcL (0.6-4.6); Lymphocytes % 7.9 %; Monocytes # 0.7 K/mcL (0.0-1.3); Monocytes % 12.8 %
[2016-10-12 06:42] LABS: Neutrophils # 4.2 K/mcL (1.6-8.9); Platelet Count 72 K/mcL (140-400)
[2016-10-12 06:58] LABS: Anisocytosis 2+ (Not Present); Calcium 8.9 mg/dL (8.6-10.8); Magnesium 1.6 mg/dL (1.6-2.6); Platelet Estimate Decreased (Normal); Potassium 4.8 mEq/L (3.5-4.5)
[2016-10-12] MEDS: Insulin LISPRO 300 UNITS/3 ML VIAL SQ SCH ×4 (08:19→20:38)
[2016-10-12] MEDS: Doxycycline 100 MG CAPSULE PO SCH ×2 (08:21→20:38)
[2016-10-12] MEDS: predniSONE 10 MG TABLET PO SCH (08:22)
[2016-10-12] MEDS: Renal Vitamin 1 MG CAPSULE PO SCH (08:22)
[2016-10-12] MEDS: NON-FORMULARY MEDICATION 1 EACH EACH PO SCH (08:22)
[2016-10-12] MEDS ORDERED: *HR* OxyCODONE Immed Rel 5 MG TABLET PO PRN (08:39)
[2016-10-12] MEDS ORDERED: predniSONE 20 MG TABLET PO SCH (09:00)
[2016-10-12] MEDS: MethylPREDNISolone 40 MG/ML VIAL IVP SCH ×2 (09:57→16:55)
--- NOTE | 2016-10-12 10:54 | Internal Med Progress Note ---
<ElizaTemo Israel - Last Filed: 10/12/16 10:51> Date of Encounter: 10/12/16 Time of Encounter: 10:51 - Assessment and plan (1) Deep vein thrombosis of lower extremity Current Visit: Yes Status: Acute Assessment and plan: Extensive DVT left lower extremity confirmed by ultrasound. Patient had an acute GI bleed on anticoagulation and for further anticoagulation is contraindicated. Postop day 1 status post IVC filter placement, patient tolerated the procedure well. No evidence of pulmonary embolism at this time. Qualifiers: Affected thrombotic vein of extremity: iliac Laterality: left Chronicity : acute Qualified Code(s): I82.422 - Acute embolism and thrombosis of left iliac vein (2) Acute blood loss anemia Current Visit: Yes Status: Acute Assessment and plan: Due to GI source and anticoagulation with heparin. Hemoglobin stable today, no evidence of continued active bleed. Per GI patient is not a good candidate for inpatient endoscopy. (3) Chronic kidney disease, stage V Current Visit: Yes Status: Chronic Assessment and plan: Creatinine stable today. Patient had IVC filter placement yesterday with a total of 15 mL of contrast used. We will continue Mucomyst for 2 days. Continue to monitor renal function. Nephrology is following. (4) Kidney transplant recipient Current Visit: Yes Status: Chronic Assessment and plan: Kidney transplant 1978. Stable renal function as discussed above. (5) DM (diabetes mellitus) Current Visit: No Status: Acute Assessment and plan: Blood sugars under good control. Continues sliding scale insulin. Qualifiers: Diabetes mellitus type: type 2 Diabetes mellitus complication status: with kidney complications Diabetes mellitus complication detail: with chronic kidney disease Chronic kidney disease stage: stage 5, not on chronic dialysis Qualified Code(s): E11.22 - Type 2 diabetes mellitus with diabetic chronic kidney disease; N18.5 - Chronic kidney disease, stage 5; Z79.4 - snf ( current) use of insulin (6) Severe protein-calorie malnutrition Current Visit: Yes Status: Acute Assessment and plan: Due to inadequate food intake and lack of appetite, likely secondary to depression with a BMI of 16.8. We will supplement as patient allows. (7) DVT prophylaxis Current Visit: Yes Status: Acute Assessment and plan: Contraindicated at this time due to acute blood loss on anticoagulation, and acute DVT precludes the use of the EPCD's. IVC filter placed as discussed above. - Subjective Interval history: Patient seen and examined at bedside. Patient states he feels okay today, his main complaint is pain in the left hand that is slightly worse than yesterday. He states his leg pain is slightly improved. He denies any blood in the stool. - Constitutional Vitals: Temp Pulse Resp BP Pulse Ox 98.3 F 89 18 158/89 95 10/11/16 15:42 10/12/16 07:36 10/12/16 07:36 10/12/16 07:36 10/12/16 07:36 General appearance: Present: A&O X 3, pleasant, no acute distress - Respiratory Respiratory exam: Present: CTAB. Absent: rales, rhonchi, wheezes - Cardiovascular Cardiovascular exam: Present: RRR. Absent: gallop, rubs, systolic murmur - GI/Abdominal GI/Abdominal exam: Present: normal bowel sounds, soft. Absent: distended, tenderness - Extremities Exam Additional comments: Left lower extremity is swollen and mildly erythematous. No bleeding or drainage noted. - Neurological Exam Neurological exam: Present: alert, CN II-XII intact, oriented X3, no focal deficits - Psychiatric Psychiatric exam: Present: depressed Internal Medicine: Result - Labs CBC & Chem 7: 10/12/16 04:16 10/12/16 04:16 Labs: Short CBC 10/12/16 Range/Units 04:16 WBC 5.5 (4.3-11.1) K/mcL Hgb 10.2 L (12.9-16.9) g/dL Hct 31.3 L (37.5-50.1) % Plt Count 72 L (140-400) K/mcL Neutrophils # 4.2 (1.6-8.9) K/mcL BMP 10/12/16 04:16 Sodium 142 Potassium 4.8 H Chloride 112 H Carbon Dioxide 19 BUN 83 H Creatinine 4.83 H Glucose 74 Calcium 8.9 - ABG Interpretation ABG results: PT/INR, D-dimer PT 11.6 Seconds (9.4-12.1) 10/11/16 07:45 - Impressions Impressions Hand X-Ray 10/11/16 09:42 IMPRESSION: There are degenerative changes in the radiocarpal joint space and MCP joints which are severe at the 1st MCP joint. Given the more proximal distribution degenerative changes, clinical correlation for rheumatoid arthritis recommended. No acute osseous abnormality identified in the left hand or wrist. D/ / Charo Ross MD / Charo Ross MD Interpreting Provider: Charo Ross MD Wrist X-Ray 10/11/16 09:42 IMPRESSION: There are degenerative changes in the radiocarpal joint space and MCP joints which are severe at the 1st MCP joint. Given the more proximal distribution degenerative changes, clinical correlation for rheumatoid arthritis recommended. No acute osseous abnormality identified in the left hand or wrist. D/ / Charo Ross MD / Charo Ross MD Interpreting Provider: Charo Ross MD Consult Discharge Plan - Plan Referrals: Vijay Daniel MD [Primary Care Provider] - 10/17/16 1:00 pm Tommie Rojas MD [Partnered Physician] - (follow up with Dr Rojas prn only ) <Donnie Sweeney P - Last Filed: 10/12/16 16:01> Date of Encounter: 10/12/16 - Constitutional Vitals: Temp Pulse Resp BP Pulse Ox 98.3 F 89 18 158/89 95 10/11/16 15:42 10/12/16 07:36 10/12/16 07:36 10/12/16 07:36 10/12/16 07:36 Internal Medicine: Result - Labs CBC & Chem 7: 10/12/16 04:16 10/12/16 04:16 Labs: Short CBC 10/12/16 Range/Units 04:16 WBC 5.5 (4.3-11.1) K/mcL Hgb 10.2 L (12.9-16.9) g/dL Hct 31.3 L (37.5-50.1) % Plt Count 72 L (140-400) K/mcL Neutrophils # 4.2 (1.6-8.9) K/mcL BMP 10/12/16 04:16 Sodium 142 Potassium 4.8 H Chloride 112 H Carbon Dioxide 19 BUN 83 H Creatinine 4.83 H Glucose 74 Calcium 8.9 - ABG Interpretation ABG results: PT/INR, D-dimer PT 11.6 Seconds (9.4-12.1) 10/11/16 07:45 - Attending Attestation I examined this patient and my medical decision-making was reviewed with the DIESEL LOCOMOTIVE FIRER/PA/Advanced Practice Nurse/Resident Physician. I agree with the documented findings, disposition and treatment plan as described except to the extent set forth below. Input from nephrology, vascular surgery appreciated. Close monitoring of renal function. Patient will go to inpatient rehabilitation early next week. Possibility of a contrast-induced nephropathy in next 48 hours. Patient needs close monitoring for next 48-72 hours.
[2016-10-12] MEDS: *HR* Acetylcysteine 20% 600 MG/3 ML ORAL SYRINGE PO SCH ×2 (11:06→20:50)
--- NOTE | 2016-10-12 11:47 | Vascular/Endovas Progress Note ---
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 Patient is aware that the lifespan of this kidney function is limited. This is being managed by the nephrology division. Renal function stable over night. Creat stable. (2) Deep vein thrombosis of lower extremity Current Visit: Yes Status: Acute Patient has a symptomatic left lower extremity iliofemoral DVT. As noted elsewhere the patient would typically be a straightforward candidate for IVC filter. A great deal discussion was necessary to talk to him and his family regarding the use of intravenous contrast and how this may exacerbate his already dismal renal function. It was made very clear to the patient that the use of even small amount of contrast may push the patient into the need for dialysis. He understands this issue but refuses dialysis. He wishes to have the filter put in in order to avoid the potential 30% risk of fatal pulmonary embolism. He has been judged not to be an appropriate candidate for anticoagulation at this time and is also being seen by the hospitalist as well as nephrology and the hematology services. Qualifiers: Affected thrombotic vein of extremity: iliac Laterality: left Chronicity : acute Qualified Code(s): I82.422 - Acute embolism and thrombosis of left iliac vein - Subjective Interval history: no complaints referable to IVC filter placement - Physical Examination General: Present: Conversant, No Apparent Distress Vascular: Present: Other (left LE edema is decreased. The right groin puncture site dressing is intact. No bleeding.) Abdomen: Present: Soft Results 10/12/16 04:16 10/12/16 04:16 Lab Results, Last 24 hours 10/12/16 10/12/16 04:16 04:16 WBC 5.5 Hgb 10.2 L Hct 31.3 L Plt Count 72 L Sodium 142 Potassium 4.8 H Chloride 112 H Carbon Dioxide 19 BUN 83 H Creatinine 4.83 H Glucose 74 Calcium 8.9 Magnesium 1.6 Consult Discharge Plan - Plan Referrals: Vijay Daniel MD [Primary Care Provider] - 10/17/16 1:00 pm Tommie Rojas MD [Partnered Physician] - (follow up with Dr Rojas prn only )
[2016-10-12] MEDS ORDERED: Colchicine 0.6 MG TABLET PO ONE (12:00)
--- NOTE | 2016-10-12 12:54 | Nephrology Progress Note ---
Date of Encounter: 10/12/16 Time of Encounter: 12:51 - Assessment and Plan (1) Chronic kidney disease, stage V Current Visit: Yes Status: Chronic Creatinine overall stable. Unfortunately patient needed ivp dye exposure to place IVC filter. hydration and mucomyst to maximize protection from FRANCES. Monitor. (2) Deep vein thrombosis of left lower limb Current Visit: Yes Status: Acute per primary team. Patient had acute anemia likely from gi source. Patient now s/p an ivc filter. Qualifiers: Qualified Code(s): I82.402 - Acute embolism and thrombosis of unspecified deep veins of left lower extremity (3) Anemia Current Visit: Yes Status: Chronic acute anemia. s/p transfusion. defer work-up to the primary team. Qualifiers: Anemia type: other cause Other causes of anemia: chronic disease, kidney Qualified Code(s): N18.9 - Chronic kidney disease, unspecified (4) Kidney transplant recipient Current Visit: Yes Status: Chronic continue home medication. (5) DM (diabetes mellitus) Current Visit: No Status: Acute per primary team. 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 No new complaint. Review of systems was unremarkable Objective - Vital Signs Vital signs: Vital Signs Temp Pulse Resp BP Pulse Ox 10/12/16 07:36 89 18 158/89 95 10/12/16 04:25 70 16 136/75 99 10/11/16 23:00 84 16 139/97 99 10/11/16 22:02 75 16 132/77 100 10/11/16 22:00 74 16 132/77 100 10/11/16 21:30 72 16 130/74 100 10/11/16 21:00 74 16 150/88 100 10/11/16 20:45 71 16 157/90 99 10/11/16 20:30 67 16 142/90 100 10/11/16 20:21 66 16 132/88 100 10/11/16 20:01 67 16 140/88 100 10/11/16 15:42 98.3 F 80 16 139/87 98 Intake and Output 10/11/16 10/12/16 10/12/16 23:59 07:59 15:59 Intake Total 1075 / 1075 120 / 120 Output Total 600 / 600 475 / 475 Balance 475 / 475 -355 / -355 Intake: IV Fluids 1075 / 1075 Sodium Bicarbonate 75 MEQ 1075 / 1075 In 0.45% Sodium Chloride 1000 Ml 1000 Ml 1,000 ML @ 75 mls/hr IVC .[id number] NABIL Rx#:[id number] Oral 0 / 0 120 / 120 Output: Urine 600 / 600 475 / 475 Other: Meal Breakfast Percent of Meal Consumed 100% # Voids 0 Weight 56 kg Blood Glucose* 148 88 111 Patient Weight 10/12/16 23:59 Weight 56 kg - General Appearance General appearance: Present: well-developed, chronically ill, frail EENT: Present: ATNC Neck: Present: supple Cardiology: Present: regular rate Integumentary: Present: warm and dry Neurologic: Present: alert and oriented x3 Psychiatric: Present: mood/affect appropriate - Lab 10/12/16 04:16 10/12/16 04:16 Most recent lab results Calcium 8.9 mg/dL (8.6-10.8) 10/12/16 04:16 Magnesium 1.6 mg/dL (1.6-2.6) 10/12/16 04:16 Consult Discharge Plan - Plan Referrals: Vijay Daniel MD [Primary Care Provider] - 10/17/16 1:00 pm Tommie Rojas MD [Partnered Physician] - (follow up with Dr Bob ventura only )
[2016-10-12] MEDS ORDERED: MethylPREDNISolone 40 MG/ML VIAL IVP SCH (16:00)
[2016-10-12] MEDS: clonazePAM 1 MG TABLET PO SCH (20:38)
[2016-10-13] MEDS: MethylPREDNISolone 40 MG/ML VIAL IVP SCH ×3 (00:10→18:24)
[2016-10-13] MEDS: *HR* OxyCODONE Immed Rel 5 MG TABLET PO PRN ×3 (00:10→18:28)
[2016-10-13 05:59] LABS: Hemoglobin 9.6 g/dL (12.9-16.9)
[2016-10-13 06:01] LABS: Hematocrit 28.5 % (37.5-50.1); Immature Granulocytes % 1.1 % (0-4); Lymphocytes # 0.1 K/mcL (0.6-4.6); Lymphocytes % 3.9 %; Mean Corpuscular HGB Conc 33.7 g/dL (31.6-35.5); Mean Corpuscular Hemoglobin 32.5 pg (28.0-33.3); Mean Corpuscular Volume 96.6 fL (83.0-100.0); Mean Platelet Volume 10.2 fL (9.4-12.4); Monocytes # 0.2 K/mcL (0.0-1.3); Monocytes % 4.7 %; Neutrophils # 3.3 K/mcL (1.6-8.9); Red Blood Count 2.95 M/mcL (4.19-5.50); Red Cell Distribution Width 17.5 % (11.5-14.5); Segmented Neutrophils % 90.3 %
[2016-10-13 06:06] LABS: Platelet Count 51 K/mcL (140-400)
[2016-10-13 06:07] LABS: Calcium 8.6 mg/dL (8.6-10.8); Magnesium 1.7 mg/dL (1.6-2.6)
[2016-10-13 06:40] LABS: Platelet Estimate Marked Decrease (Normal)
--- NOTE | 2016-10-13 08:02 | Internal Med Progress Note ---
<Temo Kay - Last Filed: 10/13/16 08:00> Date of Encounter: 10/13/16 Time of Encounter: 08:00 - Assessment and plan (1) Deep vein thrombosis of lower extremity Current Visit: Yes Status: Acute Assessment and plan: Extensive DVT left lower extremity confirmed by ultrasound. Patient had an acute GI bleed on anticoagulation and for further anticoagulation is contraindicated. Postop day 2 status post IVC filter placement, patient tolerated the procedure well. No evidence of pulmonary embolism at this time. Qualifiers: Affected thrombotic vein of extremity: iliac Laterality: left Chronicity : acute Qualified Code(s): I82.422 - Acute embolism and thrombosis of left iliac vein (2) Acute blood loss anemia Current Visit: Yes Status: Acute Assessment and plan: Due to GI source and anticoagulation with heparin. Hemoglobin stable today, no evidence of continued active bleed. Per GI patient is not a good candidate for inpatient endoscopy. (3) Gout attack Current Visit: Yes Status: Acute Assessment and plan: Patient had acute onset of left wrist pain with mild swelling and erythema. Uric acid was 8.8. An initial dose of colchicine is given that did not help the patient's symptoms. Given the patient's renal impairment for options are limited regarding therapeutics so patient will be given a short course of IV steroids. By mouth steroids are being avoided given the patient's GI bleed. Patient symptoms are much improved today after 1 day of IV steroids. We will continue to monitor. 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 Patient had IVC filter placement 2 days ago with a total of 15 mL of contrast used. We will continue Mucomyst for 2 days. Continue to monitor renal function. Nephrology is following. (5) Kidney transplant recipient Current Visit: Yes Status: Chronic Assessment and plan: Kidney transplant 1978. Stable renal function as discussed above. (6) DM (diabetes mellitus) Current Visit: No Status: Acute Assessment and plan: Blood sugars under good control. Continues sliding scale insulin. Qualifiers: Diabetes mellitus type: type 2 Diabetes mellitus complication status: with kidney complications Diabetes mellitus complication detail: with chronic kidney disease Chronic kidney disease stage: stage 5, not on chronic dialysis Qualified Code(s): E11.22 - Type 2 diabetes mellitus with diabetic chronic kidney disease; N18.5 - Chronic kidney disease, stage 5; Z79.4 - [facility] ( current) use of insulin (7) Severe protein-calorie malnutrition Current Visit: Yes Status: Acute Assessment and plan: Due to inadequate food intake and lack of appetite, likely secondary to depression with a BMI of 16.8. We will supplement as patient allows. (8) DVT prophylaxis Current Visit: Yes Status: Acute Assessment and plan: Contraindicated at this time due to acute blood loss on anticoagulation, and acute DVT precludes the use of the EPCD's. IVC filter placed as discussed above. - Subjective Interval history: Patient seen and examined at bedside. Patient states he feels okay today, he states his hand pain is better today. He states his leg pain is slightly improved. He denies any blood in the stool. - Constitutional Vitals: Temp Pulse Resp BP Pulse Ox 98.1 F 16 56 130/76 98 10/13/16 04:20 10/13/16 04:20 10/13/16 04:20 10/13/16 04:20 10/13/16 04:20 General appearance: Present: A&O X 3, pleasant, no acute distress - Respiratory Respiratory exam: Present: CTAB. Absent: rales, rhonchi, wheezes - Cardiovascular Cardiovascular exam: Present: bradycardia. Absent: gallop, irregular rhythm, rubs, systolic murmur - GI/Abdominal GI/Abdominal exam: Present: normal bowel sounds, soft. Absent: distended, tenderness - Extremities Exam Additional comments: Left lower extremity has swelling and mild erythema present compared to the right lower extremity. Unchanged from yesterday. Left hand erythema and swelling is slightly improved from yesterday. - Neurological Exam Neurological exam: Present: alert, CN II-XII intact, oriented X3, no focal deficits Internal Medicine: Result - Labs CBC & Chem 7: 10/13/16 05:32 10/13/16 05:32 Labs: Short CBC 10/13/16 Range/Units 05:32 WBC 3.6 L (4.3-11.1) K/mcL Hgb 9.6 L (12.9-16.9) g/dL Hct 28.5 L (37.5-50.1) % Plt Count 51 L (140-400) K/mcL Neutrophils # 3.3 (1.6-8.9) K/mcL BMP 10/13/16 05:32 Sodium 139 Potassium 5.0 H Chloride 107 Carbon Dioxide 19 BUN 83 H Creatinine 4.68 H Glucose 136 H Calcium 8.6 - ABG Interpretation ABG results: PT/INR, D-dimer PT 11.6 Seconds (9.4-12.1) 10/11/16 07:45 Consult Discharge Plan - Plan Referrals: Vijay Daniel MD [Primary Care Provider] - 10/17/16 1:00 pm Tommie Rojas MD [Partnered Physician] - (follow up with Dr Rojas prmark only ) <Donnie Sweeney - Last Filed: 10/13/16 11:17> Date of Encounter: 10/13/16 - Constitutional Vitals: Temp Pulse Resp BP Pulse Ox 97.9 F 95 18 135/89 100 10/13/16 11:05 10/13/16 11:05 10/13/16 11:05 10/13/16 11:05 10/13/16 11:05 Internal Medicine: Result - Labs CBC & Chem 7: 10/13/16 05:32 10/13/16 05:32 Labs: Short CBC 10/13/16 Range/Units 05:32 WBC 3.6 L (4.3-11.1) K/mcL Hgb 9.6 L (12.9-16.9) g/dL Hct 28.5 L (37.5-50.1) % Plt Count 51 L (140-400) K/mcL Neutrophils # 3.3 (1.6-8.9) K/mcL [facility] 10/13/16 05:32 Sodium 139 Potassium 5.0 H Chloride 107 Carbon Dioxide 19 BUN 83 H Creatinine 4.68 H Glucose 136 H Calcium 8.6 - ABG Interpretation ABG results: PT/INR, D-dimer PT 11.6 Seconds (9.4-12.1) 10/11/16 07:45 - Attending Attestation I examined this patient and my medical decision-making was reviewed with the ENERGY SYSTEMS LABORATORY DIRECTOR/PA/Advanced Practice Nurse/Resident Physician. I agree with the documented findings, disposition and treatment plan as described except to the extent set forth below. Transfer to halfway for rehabilitation on Saturday Overall great improvement as compared to admission.
[2016-10-13] MEDS: Insulin LISPRO 300 UNITS/3 ML VIAL SQ SCH ×4 (08:26→21:24)
[2016-10-13] MEDS: NON-FORMULARY MEDICATION 1 EACH EACH PO SCH (08:32)
[2016-10-13] MEDS: Sodium Bicarbonate 75 MEQ in 0.45 % Sodium Chloride 1,000 ML IVC SCH ×2 (08:32→21:00)
[2016-10-13] MEDS: Doxycycline 100 MG CAPSULE PO SCH ×2 (08:32→20:59)
[2016-10-13] MEDS: Renal Vitamin 1 MG CAPSULE PO SCH (08:32)
--- NOTE | 2016-10-13 11:51 | Nephrology Progress Note ---
Date of Encounter: 10/13/16 Time of Encounter: 11:49 - Assessment and Plan (1) Chronic kidney disease, stage V Current Visit: Yes Status: Chronic Creatinine overall stable. Unfortunately patient needed ivp dye exposure to place IVC filter. hydration and mucomyst to maximize protection from FRANCES. Monitor. (2) Deep vein thrombosis of left lower limb Current Visit: Yes Status: Acute per primary team. Patient had acute anemia likely from gi source. Patient now s/p an ivc filter. Qualifiers: Qualified Code(s): I82.402 - Acute embolism and thrombosis of unspecified deep veins of left lower extremity (3) Anemia Current Visit: Yes Status: Chronic acute anemia. s/p transfusion. defer work-up to the primary team. Qualifiers: Anemia type: other cause Other causes of anemia: chronic disease, kidney Qualified Code(s): N18.9 - Chronic kidney disease, unspecified (4) Kidney transplant recipient Current Visit: Yes Status: Chronic continue home medication. (5) DM (diabetes mellitus) Current Visit: No Status: Acute per primary team. 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 No new complaint. Review of systems was unremarkable Objective - Vital Signs Vital signs: Vital Signs Temp Pulse Resp BP Pulse Ox 10/13/16 11:05 97.9 F 95 18 135/89 100 10/13/16 08:25 78 16 10/13/16 07:00 97.6 F 66 18 124/82 100 10/13/16 04:20 98.1 F 16 56 130/76 98 10/12/16 19:55 91 16 144/86 10/12/16 15:00 93 17 147/92 94 Intake and Output 10/12/16 10/13/16 10/13/16 23:59 07:59 15:59 Intake Total 1195 / 1195 240 / 240 900 / 900 Output Total 150 / 150 500 / 500 Balance 1045 / 1045 -260 / -260 900 / 900 Intake: IV Fluids 1075 / 1075 900 / 900 Sodium Bicarbonate 75 MEQ 1075 / 1075 900 / 900 In 0.45% Sodium Chloride 1000 Ml 1000 Ml 1,000 ML @ 75 mls/hr IVC .[id number] NABIL Rx#:[id number] Oral 120 / 120 240 / 240 Output: Urine 150 / 150 500 / 500 Other: # Voids 0 Weight 57 kg Blood Glucose* 212 121 158 Patient Weight 10/13/16 23:59 Weight 57 kg - General Appearance General appearance: Present: well-developed, chronically ill EENT: Present: ATNC Neck: Present: supple Additional Comments: Respirations are labored Cardiology: Present: regular rate Neurologic: Present: alert and oriented x3 - Lab 10/13/16 05:32 10/13/16 05:32 Most recent lab results Calcium 8.6 mg/dL (8.6-10.8) 10/13/16 05:32 Magnesium 1.7 mg/dL (1.6-2.6) 10/13/16 05:32 Consult Discharge Plan - Plan Referrals: Vijay Daniel MD [Primary Care Provider] - 10/17/16 1:00 pm Tommie Rojas MD [Partnered Physician] - (follow up with Dr Rojas prn only )
[2016-10-13] MEDS: clonazePAM 1 MG TABLET PO SCH (21:00)
[2016-10-14] MEDS: *HR* OxyCODONE Immed Rel 5 MG TABLET PO PRN ×3 (00:31→16:46)
[2016-10-14] MEDS: clonazePAM 1 MG TABLET PO SCH ×2 (00:32→21:02)
[2016-10-14] MEDS: MethylPREDNISolone 40 MG/ML VIAL IVP SCH ×4 (00:32→23:26)
[2016-10-14 06:57] LABS: Hemoglobin 9.2 g/dL (12.9-16.9); Red Cell Distribution Width 17.1 % (11.5-14.5)
[2016-10-14 06:59] LABS: Immature Granulocytes % 0.8 % (0-4); Immature Platelets 4.8 % (1.1-6.1); Lymphocytes # 0.1 K/mcL (0.6-4.6); Lymphocytes % 2.9 %; Mean Corpuscular HGB Conc 32.9 g/dL (31.6-35.5); Mean Corpuscular Hemoglobin 32.1 pg (28.0-33.3); Mean Corpuscular Volume 97.6 fL (83.0-100.0); Mean Platelet Volume 11.3 fL (9.4-12.4); Monocytes # 0.2 K/mcL (0.0-1.3); Monocytes % 4.6 %; Neutrophils # 4.4 K/mcL (1.6-8.9); Red Blood Count 2.87 M/mcL (4.19-5.50); Segmented Neutrophils % 91.7 %
[2016-10-14 07:02] LABS: Platelet Count 59 K/mcL (140-400)
[2016-10-14 07:09] LABS: Calcium 8.5 mg/dL (8.6-10.8); Magnesium 1.5 mg/dL (1.6-2.6); Potassium 4.6 mEq/L (3.5-4.5)
[2016-10-14] MEDS ORDERED: Magnesium Sulfate 2 GM in D5% in Water 100 ML IVPB ONE (07:24)
[2016-10-14 07:45] LABS: Platelet Estimate Decreased (Normal)
--- NOTE | 2016-10-14 08:35 | Internal Med Progress Note ---
<Temo Kay - Last Filed: 10/14/16 08:36> Date of Encounter: 10/14/16 Time of Encounter: 08:33 - Assessment and plan (1) Deep vein thrombosis of lower extremity Current Visit: Yes Status: Acute Assessment and plan: Extensive DVT left lower extremity confirmed by ultrasound. Patient had an acute GI bleed on anticoagulation and for further anticoagulation is contraindicated. Postop day 2 status post IVC filter placement, patient tolerated the procedure well. No evidence of pulmonary embolism at this time. Of note the patient has a new left upper extremity swelling, will obtain a left upper extremity Doppler. Qualifiers: Affected thrombotic vein of extremity: iliac Laterality: left Chronicity : acute Qualified Code(s): I82.422 - Acute embolism and thrombosis of left iliac vein (2) Acute blood loss anemia Current Visit: Yes Status: Acute Assessment and plan: Due to GI source and anticoagulation with heparin. Hemoglobin stable today, no evidence of continued active bleed. Per GI patient is not a good candidate for inpatient endoscopy. (3) Gout attack Current Visit: Yes Status: Acute Assessment and plan: Patient had acute onset of left wrist pain with mild swelling and erythema. Uric acid was 8.8. An initial dose of colchicine is given that did not help the patient's symptoms. Given the patient's renal impairment for options are limited regarding therapeutics so patient will be given a short course of IV steroids. By mouth steroids are being avoided given the patient's GI bleed. Patient symptoms have nearly resolved today after 2 days of IV steroids. We will continue to monitor. 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 Patient had IVC filter placement 2 days ago with a total of 15 mL of contrast used. Patient completed 3 days of Mucomyst for renal protection post procedure. Continue to monitor renal function. Nephrology is following. (5) Kidney transplant recipient Current Visit: Yes Status: Chronic Assessment and plan: Kidney transplant 1978. Stable renal function as discussed above. (6) DM (diabetes mellitus) Current Visit: No Status: Acute Assessment and plan: Blood sugars under good control. Continues sliding scale insulin. Qualifiers: Diabetes mellitus type: type 2 Diabetes mellitus complication status: with kidney complications Diabetes mellitus complication detail: with chronic kidney disease Diabetes mellitus jail insulin use: without jail use Chronic kidney disease stage: stage 5, not on chronic dialysis Qualified Code(s): E11.22 - Type 2 diabetes mellitus with diabetic chronic kidney disease ; N18.5 - Chronic kidney disease, stage 5 (7) Severe protein-calorie malnutrition Current Visit: Yes Status: Acute Assessment and plan: Due to inadequate food intake and lack of appetite, likely secondary to depression with a BMI of 16.8. We will supplement as patient allows. (8) DVT prophylaxis Current Visit: Yes Status: Acute Assessment and plan: Contraindicated at this time due to acute blood loss on anticoagulation, and acute DVT precludes the use of the EPCD's. IVC filter placed as discussed above. - Subjective Interval history: Patient seen and examined at bedside. Patient states he feels okay today, he states his hand pain is better today. He states his leg pain is slightly improved. He denies any blood in the stool. He does report that his entire left arm is now swollen. States this is new. - Constitutional Vitals: Temp Pulse Resp BP Pulse Ox 97.6 F 75 16 143/80 99 10/14/16 07:59 10/14/16 07:59 10/14/16 07:59 10/14/16 07:59 10/14/16 07:59 General appearance: Present: A&O X 3, pleasant, no acute distress - Respiratory Respiratory exam: Present: CTAB. Absent: rales, rhonchi, wheezes - Cardiovascular Cardiovascular exam: Present: bradycardia. Absent: gallop, irregular rhythm, rubs, systolic murmur - GI/Abdominal GI/Abdominal exam: Present: normal bowel sounds, soft. Absent: distended, tenderness - Extremities Exam Additional comments: Left lower extremity has 2+ pitting edema that is unchanged. No edema to the right lower extremity. The left upper extremity is noted to have nonpitting edema in his increased in size compared to the right upper extremity. The warmth and erythema around the patient's wrist has improved. Internal Medicine: Result - Labs CBC & Chem 7: 10/14/16 06:47 10/14/16 06:47 Labs: Short CBC 10/14/16 Range/Units 06:47 WBC 4.8 (4.3-11.1) K/mcL Hgb 9.2 L (12.9-16.9) g/dL Hct 28.0 L (37.5-50.1) % Plt Count 59 L (140-400) K/mcL Neutrophils # 4.4 (1.6-8.9) K/mcL BMP 10/14/16 06:47 Sodium 142 Potassium 4.6 H Chloride 108 Carbon Dioxide 23 BUN 82 H Creatinine 4.26 H Glucose 124 H Calcium 8.5 L - ABG Interpretation ABG results: PT/INR, D-dimer PT 11.6 Seconds (9.4-12.1) 10/11/16 07:45 Consult Discharge Plan - Plan Referrals: Vijay Daniel MD [Primary Care Provider] - 10/17/16 1:00 pm Tommie Rojas MD [Partnered Physician] - (follow up with Dr Bob ventura only ) <Donnie Sweeney - Last Filed: 10/14/16 13:31> Date of Encounter: 10/14/16 - Constitutional Vitals: Temp Pulse Resp BP Pulse Ox 97.8 F 51 16 133/80 99 10/14/16 11:37 10/14/16 11:37 10/14/16 11:37 10/14/16 11:37 10/14/16 11:37 Internal Medicine: Result - Labs CBC & Chem 7: 10/14/16 06:47 10/14/16 06:47 Labs: Short CBC 10/14/16 Range/Units 06:47 WBC 4.8 (4.3-11.1) K/mcL Hgb 9.2 L (12.9-16.9) g/dL Hct 28.0 L (37.5-50.1) % Plt Count 59 L (140-400) K/mcL Neutrophils # 4.4 (1.6-8.9) K/mcL BMP 10/14/16 06:47 Sodium 142 Potassium 4.6 H Chloride 108 Carbon Dioxide 23 BUN 82 H Creatinine 4.26 H Glucose 124 H Calcium 8.5 L - ABG Interpretation ABG results: PT/INR, D-dimer PT 11.6 Seconds (9.4-12.1) 10/11/16 07:45 - Attending Attestation I examined this patient and my medical decision-making was reviewed with the SCRUB WHEEL OPERATOR/PA/Advanced Practice Nurse/Resident Physician. I agree with the documented findings, disposition and treatment plan as described except to the extent set forth below.
[2016-10-14] MEDS: Insulin LISPRO 300 UNITS/3 ML VIAL SQ SCH ×4 (08:57→21:06)
[2016-10-14] MEDS: Renal Vitamin 1 MG CAPSULE PO SCH (09:05)
[2016-10-14] MEDS: NON-FORMULARY MEDICATION 1 EACH EACH PO SCH (09:05)
[2016-10-14] MEDS: Doxycycline 100 MG CAPSULE PO SCH ×2 (09:06→21:02)
--- NOTE | 2016-10-14 11:57 | Nephrology Progress Note ---
Date of Encounter: 10/14/16 Time of Encounter: 11:55 - Assessment and Plan (1) Chronic kidney disease, stage V Current Visit: Yes Status: Chronic Creatinine overall stable. Unfortunately patient needed ivp dye exposure to place IVC filter. Can discontinue iv hydration and monitor. (2) Deep vein thrombosis of left lower limb Current Visit: Yes Status: Acute per primary team. Patient had acute anemia likely from gi source. Patient now s/p an ivc filter. Qualifiers: Qualified Code(s): I82.402 - Acute embolism and thrombosis of unspecified deep veins of left lower extremity (3) Anemia Current Visit: Yes Status: Chronic acute anemia. s/p transfusion. defer work-up to the primary team. Gi consulted. Qualifiers: Anemia type: other cause Other causes of anemia: chronic disease, kidney Qualified Code(s): N18.9 - Chronic kidney disease, unspecified (4) Kidney transplant recipient Current Visit: Yes Status: Chronic continue home medication. (5) DM (diabetes mellitus) Current Visit: No Status: Acute per primary team. Qualifiers: Diabetes mellitus type: type 2 Diabetes mellitus complication status: with kidney complications Diabetes mellitus complication detail: with chronic kidney disease Diabetes mellitus fdc insulin use: without fdc use Chronic kidney disease stage: stage 5, not on chronic dialysis Qualified Code(s): E11.22 - Type 2 diabetes mellitus with diabetic chronic kidney disease ; N18.5 - Chronic kidney disease, stage 5 Subjective Principal diagnosis: CKD5 Interval history: Patient seen. No new complaint. Review of systems was unremarkable Objective - Vital Signs Vital signs: Vital Signs Temp Pulse Resp BP Pulse Ox 10/14/16 11:37 97.8 F 51 16 133/80 99 10/14/16 07:59 97.6 F 75 16 143/80 99 10/14/16 04:11 98.1 F 83 14 152/84 98 10/13/16 22:52 76 16 161/99 96 Intake and Output 10/13/16 10/14/16 10/14/16 23:59 07:59 15:59 Intake Total 1000 / 1000 240 / 240 Output Total 600 / 600 Balance 1000 / 1000 -600 / -600 240 / 240 Intake: IV Fluids 1000 / 1000 Sodium Bicarbonate 75 MEQ 1000 / 1000 In 0.45% Sodium Chloride 1000 Ml 1000 Ml 1,000 ML @ 75 mls/hr IVC .[id number] NABIL Rx#:[id number] Oral 240 / 240 Output: Urine 600 / 600 Other: Meal Breakfast Percent of Meal Consumed 100% Blood Glucose* 155 121 106 - General Appearance General appearance: Present: well-developed, well-nourished EENT: Present: ATNC Neck: Present: supple Cardiology: Present: regular rate Neurologic: Present: alert and oriented x3 Psychiatric: Present: mood/affect appropriate - Lab 10/14/16 06:47 10/14/16 06:47 Most recent lab results Calcium 8.5 mg/dL (8.6-10.8) L 10/14/16 06:47 Magnesium 1.5 mg/dL (1.6-2.6) L 10/14/16 06:47 Consult Discharge Plan - Plan Referrals: Vijay Daniel MD [Primary Care Provider] - 10/17/16 1:00 pm Tommie Rojas MD [Partnered Physician] - (follow up with Dr Rojas prmark only )
[2016-10-15] MEDS: *HR* OxyCODONE Immed Rel 5 MG TABLET PO PRN ×3 (00:28→18:32)
[2016-10-15 07:45] LABS: Calcium 8.5 mg/dL (8.6-10.8); Magnesium 2.1 mg/dL (1.6-2.6); Potassium 4.9 mEq/L (3.5-4.5)
[2016-10-15 07:47] LABS: Hemoglobin 9.3 g/dL (12.9-16.9); Mean Corpuscular Volume 99.3 fL (83.0-100.0)
[2016-10-15 07:49] LABS: Hematocrit 28.8 % (37.5-50.1); Immature Granulocytes % 1.2 % (0-4); Immature Platelets 4.5 % (1.1-6.1); Lymphocytes # 0.1 K/mcL (0.6-4.6); Lymphocytes % 2.4 %; Mean Corpuscular HGB Conc 32.3 g/dL (31.6-35.5); Mean Corpuscular Hemoglobin 32.1 pg (28.0-33.3); Mean Platelet Volume 10.6 fL (9.4-12.4); Monocytes # 0.2 K/mcL (0.0-1.3); Monocytes % 4.6 %; Platelet Count 51 K/mcL (140-400); Red Cell Distribution Width 16.8 % (11.5-14.5); Segmented Neutrophils % 91.8 %
[2016-10-15 07:51] LABS: Neutrophils # 3.9 K/mcL (1.6-8.9)
[2016-10-15 07:52] LABS: Platelet Estimate Decreased (Normal)
[2016-10-15] MEDS: Renal Vitamin 1 MG CAPSULE PO SCH (08:48)
[2016-10-15] MEDS: NON-FORMULARY MEDICATION 1 EACH EACH PO SCH (08:49)
[2016-10-15] MEDS: Doxycycline 100 MG CAPSULE PO SCH ×2 (08:49→21:05)
[2016-10-15] MEDS: MethylPREDNISolone 40 MG/ML VIAL IVP SCH (08:49)
[2016-10-15] MEDS: Insulin LISPRO 300 UNITS/3 ML VIAL SQ SCH ×4 (08:49→21:06)
[2016-10-15] MEDS: predniSONE 10 MG TABLET PO SCH (08:49)
--- NOTE | 2016-10-15 11:29 | Nephrology Progress Note ---
Date of Encounter: 10/15/16 Time of Encounter: 11:25 - Assessment and Plan (1) Chronic kidney disease, stage V Current Visit: Yes Status: Chronic Creatinine overall stable off iv hydration. Unfortunately patient needed ivp dye exposure to place IVC filter, and fortunately did not have FRANCES. Monitor. (2) Deep vein thrombosis of left lower limb Current Visit: Yes Status: Acute per primary team. Patient had acute anemia likely from gi source. Patient now s/p an ivc filter. Per primary team GI does not want to do endoscopy. Patient frustrated as to the reason why. Would like to discuss options with GI and/or hematology. Will defer to primary team. Can consider transfer to tertiary care institution if the reason for refusal is the patient's comorbidities. Etiology of the DVT is not completely clear. Patient and family member at bedside are stating his activity has been the same over the past year. Will check for lupus anticoagulant and repeat urine P/C ratio Qualifiers: Qualified Code(s): I82.402 - Acute embolism and thrombosis of unspecified deep veins of left lower extremity (3) Anemia Current Visit: Yes Status: Chronic acute anemia. s/p transfusion. defer work-up to the primary team. Gi consulted and per primary team will not perform endoscopy. Qualifiers: Anemia type: other cause Other causes of anemia: chronic disease, kidney Qualified Code(s): N18.9 - Chronic kidney disease, unspecified (4) Kidney transplant recipient Current Visit: Yes Status: Chronic continue home medication. (5) DM (diabetes mellitus) Current Visit: No Status: Acute per primary team. Qualifiers: Diabetes mellitus type: type 2 Diabetes mellitus complication status: with kidney complications Diabetes mellitus complication detail: with chronic kidney disease Diabetes mellitus exterminator helper termite insulin use: without senior living use Chronic kidney disease stage: stage 5, not on chronic dialysis Qualified Code(s): E11.22 - Type 2 diabetes mellitus with diabetic chronic kidney disease ; N18.5 - Chronic kidney disease, stage 5 (6) Monoclonal paraproteinemia Current Visit: Yes Status: Acute Repeat SPEP and check urine immunofixation. Subjective Principal diagnosis: CKD5 Interval history: Patient seen. He is very concerned about his left arm swelling and the clot that was found in the arm. Objective - Vital Signs Vital signs: Vital Signs Temp Pulse Resp BP Pulse Ox 10/15/16 07:16 97.9 F 57 16 126/76 99 10/15/16 05:41 52 15 134/76 97 10/14/16 21:05 62 14 134/80 97 10/14/16 15:29 97.6 F 57 16 140/78 99 10/14/16 11:37 97.8 F 51 16 133/80 99 Intake and Output 10/14/16 10/15/16 10/15/16 23:59 07:59 15:59 Intake Total 360 / 360 Output Total 400 / 400 Balance -400 / -400 360 / 360 Intake: Oral 360 / 360 Output: Urine 400 / 400 Other: Meal Breakfast Percent of Meal Consumed 100% Blood Glucose* 143 119 - General Appearance General appearance: Present: well-developed, chronically ill, frail EENT: Present: ATNC Neck: Present: supple Additional Comments: respirations are unlabored. Cardiology: Present: regular rate Additional Comments: left upper extremity edema. Dialysis Vascular Access: Arteriovenous Fistula thrill: Yes bruit: Yes Neurologic: Present: alert and oriented x3 Psychiatric: Present: mood/affect appropriate - Lab 10/15/16 07:19 10/15/16 07:19 Most recent lab results Calcium 8.5 mg/dL (8.6-10.8) L 10/15/16 07:19 Magnesium 2.1 mg/dL (1.6-2.6) 10/15/16 07:19 Consult Discharge Plan - Plan Referrals: Vijay Daniel MD [Primary Care Provider] - 10/17/16 1:00 pm Tommie Rojas MD [Partnered Physician] - (follow up with Dr Bob ventura only )
[2016-10-15 13:00] LABS: Folate 13.6 ng/mL (7.0-31.4)
--- NOTE | 2016-10-15 13:29 | Discharge Summary ---
<Gilberto Albardao - Last Filed: 10/16/16 10:33> Date of Encounter: 10/16/16 Time of Encounter: 10:33 - Discharge Diagnosis (1) Deep vein thrombosis of left lower limb Priority: Primary Status: Acute Qualifiers: Qualified Code(s): I82.402 - Acute embolism and thrombosis of unspecified deep veins of left lower extremity (2) Macrocytic anemia Priority: Primary Status: Acute (3) Thrombocytopenia Priority: Secondary Status: Chronic (4) Chronic kidney disease, stage V Priority: Secondary Status: Chronic (5) Kidney transplant recipient Priority: Secondary Status: Chronic (6) DM (diabetes mellitus) Priority: Secondary Status: Acute Qualifiers: Diabetes mellitus type: type 2 Diabetes mellitus complication status: with kidney complications Diabetes mellitus complication detail: with chronic kidney disease Diabetes mellitus intermodal dispatcher insulin use: without longterm use Chronic kidney disease stage: stage 5, not on chronic dialysis Qualified Code(s): E11.22 - Type 2 diabetes mellitus with diabetic chronic kidney disease ; N18.5 - Chronic kidney disease, stage 5 (7) DVT prophylaxis Priority: Secondary Status: Acute - Discharge Medications Home Medications: Azathioprine [Imuran] 50 mg PO DAILY 08/13/15 [History] Lansoprazole [Prevacid] 30 mg PO BID 08/13/15 [History] predniSONE [PredniSONE] 10 mg PO DAILY 08/13/15 [History] Doxycycline Hyclate 100 mg PO BID 11/24/15 [History] Fludrocortisone Acetate [Florinef] 0.1 mg PO MOWEFR 11/24/15 [History] Alfuzosin HCl [Uroxatral] 10 mg PO DAILY 05/29/16 [History] Oxycodone HCl 10 mg PO Q8H PRN 10/08/16 [History] clonazePAM [Klonopin] 1 mg PO HS 10/08/16 [History] Doxycycline 100 mg PO BID 10/09/16 [History] Allergies/Adverse Reactions: Allergies NSAIDS (Non-Steroidal Anti-Inflamma Adverse Reaction (Verified 10/08/16 18:39) KIDNEY DISEASE Procedures/tests Complete & Pending: Procedures Performed prior 72 hours Category Date Time Status Venous Doppler [EV venous imaging UE LT] Routine Y 10/14/16 07:40 Completed Date of admission: 10/09/16 14:19 Primary care physician: Vijay Daniel MD Consults: 10/10/16 08:19 Consult to Nephrology [CONS] Routine Consulting Provider: Kidney Jenny/REAL/CHUNG/THOMAS Reason for Consult: CKD stage V with hx of renal transplant in 1978 Call Completed: Yes 10/10/16 09:03 consult to shipping support [Consult to Nutrition] [CONS] Routine Comment: Consulting Provider: NUTRITION Reason for Dietary Consult: Other Other:: Meal planning and patient stating not feeling like he is getting enough 10/11/16 09:15 Consult to Vascular Surgery [CONS] Routine Consulting Provider: Vascular Surgery Jenny Reason for Consult: Possible IVC filter Call Completed: Yes 10/12/16 13:01 Consult to Gastroenterology [CONS] Routine Consulting Provider: Gastroenterology Jenny Reason for Consult: GI bleed in setting of cirrhosis and new DVT Call Completed: Yes Discharging clinician: Gilberto Albarado Anticipated date of discharge: 10/15/16 - Patient Status Disposition: Transfer SNF Condition: Fair Functional capacity at discharge: uses cane/walker Overall status at discharge: patient is progressing back to baseline - Discharge Instructions Instructions: Chronic Kidney Disease (DC), Chronic Kidney Disease (GEN), Deep Venous Thrombosis (DC), Diabetes Mellitus Type 2 in Adults (DC), Peripheral Vascular Disorders (DC), Chronic Hypertension (DC), Anemia (GEN) Follow Up With: Germán Barrera MD [Partnered Physician] - 10/24/16 1:40 pm Vijay Daniel MD [Primary Care Provider] - 10/17/16 1:00 pm Tommie Rojas MD [Partnered Physician] - (follow up with Dr Bob ventura only ) Imtiaz Gilmore MD [Partnered Physician] - (your primary care physician will set this up for you) Additional Instructions: 1. Follow-up with your primary care provider in the next 3-5 days 2. Take all prescriptions as prescribed, any concerns or questions contact her primary care provider. 3. Return to the emergency department if: Develop shortness of breath, stroke like symptoms, chest pain, difficulty breathing, new or concerning medical symptoms or signs. Follow-up with gastroenterology in one month post discharge. Follow-up with hematology/oncology for clotting. - Diet and Activity Activity: ambulate only with your walker, as per physical therapy Diet: advance to your usual diet (Renal diet) Hospital course: Mr. Ford is a 65 year old male - Time Spent with Patient Total time spent providing and/or coordinating discharge services: - Constitutional Vitals: Temp Pulse Resp BP Pulse Ox 97.7 F 84 16 142/94 100 10/15/16 11:59 10/15/16 11:59 10/15/16 11:59 10/15/16 11:59 10/15/16 11:59 General appearance: Present: A&O X 3, pleasant, no acute distress Exam: General: Patient alert, awake, oriented 3, interactive, in no acute distress HEENT: Normocephalic, atraumatic, pupils equal reactive to light, nasal cavity patent and open septum median position, oral mucosa moist, uvula midline, neck supple trachea midline no palpable lymphadenopathy, no thyromegaly. Chest: Symmetric bilateral correlating with respiratory effort, effort nonlabored. Cardiac: Regular rate and rhythm, positive S1, S2, no bruits appreciated bilateral carotids, Radial pulses 2+ bilateral, posterior tibial and dorsal pedal pulses 2+ bilateral. Respiratory: Clear to auscultation all lung saucedo Abdomen: Soft, nontender, positive bowel sounds, no palpable masses appreciated on examination Extremities: Significant swelling with 1+ pitting edema of the left lower extremity, nontender to palpation right lower extremities without edema or erythema. patient moving all 4 extremities spontaneously. Neurologic: No focal deficits appreciated on examination. Face symmetric, muscle strength symmetric bilateral upper and lower extremities. <Donnie Sweeney P - Last Filed: 10/16/16 12:20> Date of Encounter: 10/16/16 Procedures/tests Complete & Pending: Procedures Performed prior 72 hours Category Date Time Status Venous Doppler [EV venous imaging UE LT] Routine Y 10/14/16 07:40 Completed Date of admission: 10/09/16 14:19 Primary care physician: Vijay Daniel MD Consults: 10/10/16 08:19 Consult to Nephrology [CONS] Routine Consulting Provider: Kidney Jenny/REAL/CHUNG/THOMAS Reason for Consult: CKD stage V with hx of renal transplant in 1978 Call Completed: Yes 10/10/16 09:03 consult to shipping support [Consult to Nutrition] [CONS] Routine Comment: Consulting Provider: NUTRITION Reason for Dietary Consult: Other Other:: Meal planning and patient stating not feeling like he is getting enough 10/11/16 09:15 Consult to Vascular Surgery [CONS] Routine Consulting Provider: Vascular Surgery Jenny Reason for Consult: Possible IVC filter Call Completed: Yes 10/12/16 13:01 Consult to Gastroenterology [CONS] Routine Consulting Provider: Gastroenterology Jenny Reason for Consult: GI bleed in setting of cirrhosis and new DVT Call Completed: Yes Hospital course: Mr. Ford is a 65 year old male - Time Spent with Patient Total time spent providing and/or coordinating discharge services: - Constitutional Vitals: Temp Pulse Resp BP Pulse Ox 99 F 98 16 132/81 99 10/16/16 11:19 10/16/16 11:19 10/16/16 11:19 10/16/16 11:19 10/16/16 11:19 - Attending Attestation I examined this patient and my medical decision-making was reviewed with the MATERIAL CONTROL SPECIALIST/PA/Advanced Practice Nurse/Resident Physician. I agree with the documented findings, disposition and treatment plan as described except to the extent set forth below. follow up with Hematology-oncology for possible work up for underlying malignancy as patient has recurrent thrombotic events. if no malignancy then need work up for haem disorders. follow up with nephrology
--- NOTE | 2016-10-15 13:36 | Physician Discharge Referral ---
<Gilberto Albarado - Last Filed: 10/15/16 13:35> ExtendedCare Referral Info Transfer To: Extended care facility Provider in Charge after Transfer: PCP Institutional Level of Care: Skilled - Diagnosis (1) Deep vein thrombosis of left lower limb Priority: Primary Status: Acute (2) Macrocytic anemia Priority: Secondary Status: Acute (3) Thrombocytopenia Priority: Secondary Status: Chronic (4) Chronic kidney disease, stage V Priority: Primary Status: Chronic (5) Kidney transplant recipient Priority: Secondary Status: Chronic (6) DM (diabetes mellitus) Priority: Secondary Status: Acute (7) DVT prophylaxis Priority: Secondary Status: Acute - Transfer Medications Home Medications: Azathioprine [Imuran] 50 mg PO DAILY 08/13/15 [History] Lansoprazole [Prevacid] 30 mg PO BID 08/13/15 [History] predniSONE [PredniSONE] 10 mg PO DAILY 08/13/15 [History] Doxycycline Hyclate 100 mg PO BID 11/24/15 [History] Fludrocortisone Acetate [Florinef] 0.1 mg PO MOWEFR 11/24/15 [History] Alfuzosin HCl [Uroxatral] 10 mg PO DAILY 05/29/16 [History] Oxycodone HCl 10 mg PO Q8H PRN 10/08/16 [History] clonazePAM [Klonopin] 1 mg PO HS 10/08/16 [History] Doxycycline 100 mg PO BID 10/09/16 [History] Allergies/Adverse Reactions: Allergies NSAIDS (Non-Steroidal Anti-Inflamma Adverse Reaction (Verified 10/08/16 18:39) KIDNEY DISEASE - Respiratory Orders Smoking Cessation: Smoking cessation has been advised. For more information, call the [place] Tobacco Quit Line at 7-819-VRGI-NOW. - Ancillary Orders May use pressure relief devices daily prn, May consult with Dentist, Metal Products Fabricator Assembler, Insurance Compliance Analyst PRN - Advance Directives Living Will: No Power of General Activities Therapist: No Code Status: DNR-Arrest/Don't Intubate - Mobility Orders Ambulate - Rehabiliation Orders Rehab Potential: Fair Rehab Orders: Evaluation for Physical Therapy, Evaluation for Occupational Therapy - Treatments Skin tear care topically daily PRN per policy, May check for fecal impaction rectally daily PRN, Fleet enema rectally every other day PRN cleansing purposes - Diet Orders No Added Salt (ANALILIA), Renal CERTIFICATION: I certify that the transfer of the above named patient to an Extended Care Facility is necessary for the continuing treatment of the diagnosis listed. The above information is true and accurate reflection of patient's current condition. Confidential - Redisclosure prohibited without a patient's written consent. <Donnie Sweeney P - Last Filed: 10/16/16 12:20> - Respiratory Orders Smoking Cessation: Smoking cessation has been advised. For more information, call the [place] Tobacco Quit Line at 0-118-EEVUNOW. CERTIFICATION: I certify that the transfer of the above named patient to an Extended Care Facility is necessary for the continuing treatment of the diagnosis listed. The above information is true and accurate reflection of patient's current condition. Confidential - Redisclosure prohibited without a patient's written consent.
--- NOTE | 2016-10-15 15:24 | Venous Imaging Report ---
UE Venous Duplex Patient Name:Gilberto Ford Order Number:[id number] Procedure Date:10/14/2016 Date:1950ge:65 yrs Gender:Male Location:[facility] Room #: 2NE18 Lard Tub Washer:Gauri Ramey Referring MD:Temo Kay DO vest maker:Vijay Daniel MD Reading MD:Piyush Hyde MD Primary Indications:New onset swelling/Hx of DVT Secondary Indications: Risk Factors Yes/No Hx of DVT Yes [place] Filter Yes Impressions: Normal left upper extremity deep venous exam. Acute superficial thrombosis is present in the left basilic vein. Normal contralateral common femoral vein. Recommendations: After imaging the patient returned to their room. Gave vascular preliminary results to An SINHA 2NE. Test completed on 10/14/2016 at 2:19:00 pm. Critical findings reported to An SINHA by phone at 2:35:00 pm on 10/14/2016 by Gauri Ramey. Findings Venous Duplex Results: Right: Venous imaging of the upper extremity reveals full patency and normal vessel compressibility of the right subclavian. Doppler signals in the evaluated veins were normal. Left: Venous imaging of the upper extremity reveals full patency and normal vessel compressibility of the left jugular, left subclavian, left axillary, left brachial, left cephalic, left basilic upper arm, left radial and left ulnar. Doppler signals in the evaluated veins were normal. The left anticubital basilic demonstrates an incompressible vein. Flow was absent and it did not augment. Prior Study: No prior study available for comparison. Upper Extremity Venous Duplex Side Vein Compress Spontaneous Flow Augment Left Jugular Normal yes Phasic yes Left Subclavian Normal yes Phasic yes Left Axillary Normal yes Phasic yes Left Brachial Normal yes Phasic yes Left Cephalic Normal yes Phasic yes Left Basilic Upper Arm Normal yes Phasic yes Left Basilic None no Absent no Left Radial Normal yes Phasic yes Left Ulnar Normal yes Phasic yes Right Subclavian Normal yes Phasic yes Updated by Piyush Hyde MD on 10/15/2016 3:12:20 PM electronically signed on 10/15/2016 3:19:21 PM with status of Final
--- NOTE | 2016-10-15 15:24 | Internal Med Progress Note ---
<Gilberto Albarado - Last Filed: 10/15/16 15:22> Date of Encounter: 10/15/16 Time of Encounter: 09:00 - Assessment and plan (1) Deep vein thrombosis of left lower limb Current Visit: Yes Status: Acute Assessment and plan: Extensive DVT left lower extremity confirmed by ultrasound. Patient had an acute GI bleed on anticoagulation and for further anticoagulation is contraindicated. Postop day 3 status post IVC filter placement, patient tolerated the procedure well. No evidence of pulmonary embolism at this time. - He was also found to have a left upper extremity swelling and correlating Doppler with a superficial DVT. Plan: - Cause for his deep vein thrombosis and superficial thrombosis is unclear but given the spontaneity of this occurrence he will require outpatient follow-up with hematology. Qualifiers: Qualified Code(s): I82.402 - Acute embolism and thrombosis of unspecified deep veins of left lower extremity (2) Macrocytic anemia Current Visit: Yes Status: Acute Assessment and plan: Patient has a chronic history of macrocytic anemia with previous history of renal transplant and in the setting of stage V kidney failure. He follows up with Dr. John with nephrology. He has previously been seen by hematology/ oncology for his macrocytic anemia. - Hematology has seen him during this inpatient stay - Patient will follow up with hematology in the outpatient setting. (3) Thrombocytopenia Current Visit: Yes Status: Chronic Assessment and plan: Stable. (4) Chronic kidney disease, stage V Current Visit: Yes Status: Chronic Assessment and plan: Patient has end-stage renal disease and underwent IVC filter with contrast dye but maintained current renal function. Nephrology has been on board throughout his inpatient stay and involved in his care. - Stage V renal failure stable. - Continue to renally dose antibiotics and avoid nephrotoxic medications - Careful with IV fluids given current renal function - Monitor renal function with daily labs. (5) Kidney transplant recipient Current Visit: Yes Status: Chronic Assessment and plan: Kidney transplant 1978. Stable renal function as discussed above. (6) DM (diabetes mellitus) Current Visit: No Status: Acute Assessment and plan: Blood sugars under good control. Continues sliding scale insulin. Qualifiers: Diabetes mellitus type: type 2 Diabetes mellitus complication status: with kidney complications Diabetes mellitus complication detail: with chronic kidney disease Diabetes mellitus termite control representative insulin use: without termite control representative use Chronic kidney disease stage: stage 5, not on chronic dialysis Qualified Code(s): E11.22 - Type 2 diabetes mellitus with diabetic chronic kidney disease ; N18.5 - Chronic kidney disease, stage 5 (7) DVT prophylaxis Current Visit: Yes Status: Acute Assessment and plan: Contraindicated at this time due to acute blood loss on anticoagulation, and acute DVT precludes the use of the EPCD's. IVC filter placed as discussed above. - Subjective Interval history: Mr. Ford very pleasant 65-year-old male has been seen and evaluated patient bedside this morning. He is without discomfort and is resting well and is alert and oriented 3. He denies any chest pain, chest pressure, abdominal pain nausea vomiting diarrhea constipation blurry vision lightheadedness or dizziness. He has had some left lower extremity swelling since admission and he said that it is nonpainful but is concerning to him. He has been elevating his leg but understands that this may be secondary to his deep vein thrombosis. He has no other concerns or questions at this time. - Constitutional Vitals: Temp Pulse Resp BP Pulse Ox 97.7 F 84 16 142/94 100 10/15/16 11:59 10/15/16 11:59 10/15/16 11:59 10/15/16 11:59 10/15/16 11:59 General appearance: Present: A&O X 3, pleasant, no acute distress Exam: General: Patient alert, awake, oriented 3, interactive, in no acute distress HEENT: Normocephalic, atraumatic, pupils equal reactive to light, nasal cavity patent and open septum median position, oral mucosa moist, uvula midline, neck supple trachea midline no palpable lymphadenopathy, no thyromegaly. Chest: Symmetric bilateral correlating with respiratory effort, effort nonlabored. Cardiac: Regular rate and rhythm, positive S1, S2, no bruits appreciated bilateral carotids, Radial pulses 2+ bilateral, posterior tibial and dorsal pedal pulses 2+ bilateral. Respiratory: Clear to auscultation all lung saucedo Abdomen: Soft, nontender, positive bowel sounds, no palpable masses appreciated on examination Extremities: Significant swelling with 1+ pitting edema of the left lower extremity, nontender to palpation right lower extremities without edema or erythema. patient moving all 4 extremities spontaneously. Neurologic: No focal deficits appreciated on examination. Face symmetric, muscle strength symmetric bilateral upper and lower extremities. Internal Medicine: Result - Labs CBC & Chem 7: 10/15/16 07:19 10/15/16 07:19 Labs: Short CBC 10/15/16 Range/Units 07:19 WBC 4.2 L (4.3-11.1) K/mcL Hgb 9.3 L (12.9-16.9) g/dL Hct 28.8 L (37.5-50.1) % Plt Count 51 L (140-400) K/mcL Neutrophils # 3.9 (1.6-8.9) K/mcL BMP 10/15/16 07:19 Sodium 141 Potassium 4.9 H Chloride 108 Carbon Dioxide 23 BUN 84 H Creatinine 4.32 H Glucose 112 H Calcium 8.5 L - ABG Interpretation ABG results: PT/INR, D-dimer PT 11.6 Seconds (9.4-12.1) 10/11/16 07:45 Consult Discharge Plan - Plan Instructions: Chronic Kidney Disease (DC), Chronic Kidney Disease (GEN), Deep Venous Thrombosis (DC), Diabetes Mellitus Type 2 in Adults (DC), Peripheral Vascular Disorders (DC), Chronic Hypertension (DC), Anemia (GEN) Additional Instructions: 1. Follow-up with your primary care provider in the next 3-5 days 2. Take all prescriptions as prescribed, any concerns or questions contact her primary care provider. 3. Return to the emergency department if: Develop shortness of breath, stroke like symptoms, chest pain, difficulty breathing, new or concerning medical symptoms or signs. Follow-up with gastroenterology in one month post discharge. Follow-up with hematology/oncology for clotting. Referrals: Germán Barrera MD [Partnered Physician] - 10/24/16 1:40 pm Vijay Daniel MD [Primary Care Provider] - 10/17/16 1:00 pm Tommie Rojas MD [Partnered Physician] - (follow up with Dr Bob ventura only ) Imtiaz Gilmore MD [Partnered Physician] - (your primary care physician will set this up for you) <Donnie Sweeney - Last Filed: 10/15/16 17:17> Date of Encounter: 10/15/16 - Constitutional Vitals: Temp Pulse Resp BP Pulse Ox 98.1 F 83 16 160/92 99 10/15/16 15:29 10/15/16 15:29 10/15/16 15:29 10/15/16 15:29 10/15/16 15:29 Internal Medicine: Result - Labs CBC & Chem 7: 10/15/16 07:19 10/15/16 07:19 Labs: Short CBC 10/15/16 Range/Units 07:19 WBC 4.2 L (4.3-11.1) K/mcL Hgb 9.3 L (12.9-16.9) g/dL Hct 28.8 L (37.5-50.1) % Plt Count 51 L (140-400) K/mcL Neutrophils # 3.9 (1.6-8.9) K/mcL BMP 10/15/16 07:19 Sodium 141 Potassium 4.9 H Chloride 108 Carbon Dioxide 23 BUN 84 H Creatinine 4.32 H Glucose 112 H Calcium 8.5 L - ABG Interpretation ABG results: PT/INR, D-dimer PT 11.6 Seconds (9.4-12.1) 10/11/16 07:45 - Attending Attestation I examined this patient and my medical decision-making was reviewed with the IT LEAD/PA/Advanced Practice Nurse/Resident Physician. I agree with the documented findings, disposition and treatment plan as described except to the extent set forth below. should go to rehab facility today or tomorrow
[2016-10-15] MEDS: clonazePAM 1 MG TABLET PO SCH (21:06)
[2016-10-16] MEDS: *HR* OxyCODONE Immed Rel 5 MG TABLET PO PRN ×4 (00:47→21:28)
[2016-10-16 05:01] LABS: Mean Corpuscular Volume 99.3 fL (83.0-100.0)
[2016-10-16 05:03] LABS: Hematocrit 27.6 % (37.5-50.1); Immature Granulocytes % 1.8 % (0-4); Immature Platelets 6.3 % (1.1-6.1); Lymphocytes # 0.1 K/mcL (0.6-4.6); Lymphocytes % 1.8 %; Mean Corpuscular HGB Conc 32.6 g/dL (31.6-35.5); Mean Corpuscular Hemoglobin 32.4 pg (28.0-33.3); Mean Platelet Volume 11.5 fL (9.4-12.4); Monocytes # 0.5 K/mcL (0.0-1.3); Neutrophils # 3.8 K/mcL (1.6-8.9); Red Blood Count 2.78 M/mcL (4.19-5.50); Red Cell Distribution Width 16.8 % (11.5-14.5); Segmented Neutrophils % 85.4 %
[2016-10-16 05:18] LABS: Albumin 2.2 g/dL (3.5-5.0); Albumin/Globulin Ratio 1.2 (1.1-2.2); Bilirubin,Total 0.5 mg/dL (0.2-1.2); Calcium 8.5 mg/dL (8.6-10.8); Globulin 1.8 g/dL (2.4-3.5); Potassium 4.8 mEq/L (3.5-4.5)
[2016-10-16 05:44] LABS: Platelet Count 44 K/mcL (140-400)
[2016-10-16 05:45] LABS: Platelet Estimate Marked Decrease (Normal)
[2016-10-16] MEDS: Renal Vitamin 1 MG CAPSULE PO SCH (08:28)
[2016-10-16] MEDS: Doxycycline 100 MG CAPSULE PO SCH ×2 (08:28→19:34)
[2016-10-16] MEDS: predniSONE 10 MG TABLET PO SCH (08:28)
[2016-10-16] MEDS: NON-FORMULARY MEDICATION 1 EACH EACH PO SCH (08:28)
[2016-10-16] MEDS: Insulin LISPRO 300 UNITS/3 ML VIAL SQ SCH ×4 (08:29→19:35)
[2016-10-16 15:27] VITALS: BP 98/76
[2016-10-16] MEDS: clonazePAM 1 MG TABLET PO SCH (19:34)
[2016-10-17 16:33] LABS: ANA IgG by ELISA NONE DETECTED (None Detected)
[2016-10-17 17:04] LABS: APTT (LE Anticoag) 38 sec (32-48); Diluted Russell Viper Venom 34 sec (33-44); PT (LE-Anticoag) 15.9 sec (12.0-15.5)
[2016-10-18 05:53] LABS: Alpha 2 Globulin (PEP) 0.81 g/dL (0.48-1.05); Beta Globulin (PEP) 0.48 g/dL (0.48-1.10)
[2016-10-18 08:28] LABS: IFE Reflexed NOT DONE
== END 2016-10-16 22:19 | disposition left against medical advice (07) | DRG 252 ==
LOC: 2NENU 18:16 → EMEROO 18:16 → SUATTDRO 22:35 → 2NENU 23:00
PROVIDERS: ADMIT Internal Medicine; ATTEND Internal Medicine